=== PATIENT | male | born 1955 | race Caucasian/White ===

== ENCOUNTER 2019-08-01 16:47 | Inpatient (IN) | payer OTHER ==
[2019-08-01 16:59] VITALS: BMI 47.9
--- NOTE | 2019-08-01 17:22 | PDOC ---
History of Present Illness - History of Present Illness Initial Comments: 08/01/19 18:09 63 y/o M hx of CAD s/p stent placement, IDDM, HTN , presents to the ED with blood sugar of 800. His blood work was done at his PCP's office yesterday who called him today to inform him of this value. He admits to not always taking his insulin as he should, especially at night time. He has had increased thirst and urination over the last three weeks. He also endorses some dizziness when he stands up from a sitting position. He endorses tingling in his feet bilaterally. He denies chest pain, shortness of breath, abdominal pain, nausea, vomiting, diarrhea, hematuria. <Marty Cabrera - Last Filed: 08/17/19 23:29> <Florencia Delacruz - Last Filed: 08/20/19 09:18> - General Chief Complaint: Abnormal Lab Results (Outside) Stated Complaint: HYPERGLYCEMIC Time Seen by Provider: 08/01/19 17:16 Past History - Psycho Social/Smoking Cessation Hx Smoking History: Never smoked <Marty Cabrera - Last Filed: 08/17/19 23:29> <Florencia Delacruz - Last Filed: 08/20/19 09:18> - Past Medical History Allergies/Adverse Reactions: Allergies Allergy/AdvReac Type Severity Reaction Status Date / Time No Known Allergies Allergy Verified 08/01/19 16:55 Home Medications: Ambulatory Orders Insulin Detemir [Levemir Flextouch] 50 unit SQ BID #5 insuln.pen 08/04/19 Insulin Lispro Protamin/Lispro [Humalog Mix 75-25 Kwikpen] 45 unit SQ BID #5 insuln.pen 08/04/19 Pen Needle, Diabetic [1St Tier Unifine Pentips] 1 each MC BID #100 dis.needle Review of Systems - Review of Systems Constitutional: No: Chills, Fever HEENTM: No: Eye Pain, Blurred Vision Respiratory: No: Cough, Shortness of Breath Cardiac (ROS): No: Chest Pain ABD/GI: No: Abd. Pain w/ defecation, Nausea : No: Burning, Dysuria Musculoskeletal: Yes: Back Pain Integumentary: No: Bruising, Change in Color Neurological: Yes: Tingling. No: Headache Endocrine: Yes: Increased Thirst, Increased Urine <Marty Cabrera - Last Filed: 08/17/19 23:29> *Physical Exam - Vital Signs Last Vital Signs Temp Pulse Resp BP Pulse Ox 98.4 F 68 18 102/56 L 99 08/01/19 16:50 08/01/19 16:50 08/01/19 16:50 08/01/19 16:50 08/01/19 16:50 - Physical Exam Comments: 08/01/19 18:14 PE: GENERAL: Awake, alert, and fully oriented, in no acute distress. Obese male HEAD: No signs of trauma, normocephalic, atraumatic EYES: EOMI, sclera anicteric, conjunctiva clear ENT: Auricles normal inspection, hearing grossly normal, nares patent, oropharynx clear without exudates. Moist mucosa NECK: Normal ROM, supple, no lymphadenopathy, JVD, or masses LUNGS: No distress, speaks full sentences, clear to auscultation bilaterally HEART: Regular rate and rhythm, normal S1 and S2, no murmurs, rubs or gallops, peripheral pulses normal and equal bilaterally. ABDOMEN: Soft, nontender, normoactive bowel sounds. proteburant abdomen. No guarding, no rebound. No masses EXTREMITIES : Normal inspection, Normal range of motion, trace edema. No clubbing or cyanosis, normal capillary refill. NEUROLOGICAL: Cranial nerves II through XII grossly intact. Normal speech, normal gait, no focal sensorimotor deficits SKIN: Warm, Dry, normal turgor, no rashes or lesions noted <TreyadairJctraci - Last Filed: 08/17/19 23:29> - Vital Signs Last Vital Signs Temp Pulse Resp BP Pulse Ox 98.0 F 76 20 121/64 99 08/04/19 10:00 08/04/19 10:00 08/04/19 10:00 08/04/19 10:00 08/04/19 09:00 <Florencia Delacruz - Last Filed: 08/20/19 09:18> ED Treatment Course - LABORATORY CBC & Chemistry Diagram: 08/02/19 06:30 08/04/19 12:22 - ADDITIONAL ORDERS Additional order review: Laboratory Results 08/01/19 16:52 POC Glucometer > 600 08/01/19 16:52 POC Glucometer > 600 <Marty Cabrera - Last Filed: 08/17/19 23:29> - LABORATORY CBC & Chemistry Diagram: 08/02/19 06:30 08/04/19 12:22 - ADDITIONAL ORDERS Additional order review: 08/01/19 08/01/19 08/01/19 20:28 18:34 16:52 RBC 5.01 MCV 88.2 MCHC 32.0 RDW 15.8 MPV 10.8 Neutrophils % 77.3 Lymphocytes % 12.2 Monocytes % 8.0 Eosinophils % 1.6 Basophils % 0.9 POC Glucometer 570 > 600 - Medications Given in the ED: ED Medications Discontinued Medications Generic Name Dose Route Start Last Admin Trade Name Freq PRN Reason Stop Dose Admin Clotrimazole 1 applic 08/03/19 22:00 08/04/19 09:47 Lotrimin 1% Cream - TP 1 applic BID JASBIR Administration Heparin Sodium (Porcine) 5,000 unit 08/02/19 06:00 08/04/19 05:52 Heparin - SQ 5,000 unit TID JASBIR Administration Lactated Ringer's 1,000 mls @ 1,000 mls/hr 08/01/19 23:41 08/01/19 23:55 Lactated Ringers Solution IV 08/02/19 00:40 1,000 mls/hr ONCE STA Administration Sodium Chloride 1,000 mls @ 100 mls/hr 08/02/19 09:30 08/04/19 09:47 Normal Saline - IV Not Given ASDIR JASBIR Insulin Aspart 10 units 08/01/19 17:47 08/01/19 18:14 Novolog Vial SQ 08/01/19 17:48 10 units ONCE ONE Administration Protocol Insulin Aspart 1 vial 08/02/19 03:00 08/02/19 15:12 Novolog Vial Sliding Scale - SQ Not Given Q3H JASBIR Protocol Insulin Aspart 30 units 08/02/19 16:30 08/03/19 17:20 Novolog Mix 70/30 Vial SQ 14 unit BIDAC JASBIR Administration Insulin Aspart 1 vial 08/02/19 16:30 08/03/19 17:20 Novolog Vial Sliding Scale - SQ 14 units ACHS JASBIR Administration Protocol Insulin Aspart 45 units 08/04/19 07:00 08/04/19 06:14 Novolog Mix 70/30 Vial SQ 45 units BIDAC JASBIR Administration Insulin Aspart 1 vial 08/03/19 22:00 08/04/19 12:14 Novolog Vial Sliding Scale - SQ 10 units ACHS JASBIR Administration Protocol Insulin Detemir 50 units 08/02/19 07:00 08/02/19 06:49 Levemir Vial SQ 50 unit BID@0700,2200 JASBIR Administration Insulin Detemir 50 units 08/02/19 16:26 08/04/19 06:13 Levemir Vial SQ 50 unit BID@0700,2200 JASBIR Administration Insulin Human Regular 10 units 08/01/19 19:39 08/01/19 20:40 Novolin R Vial *For Ivpush Or Iv Drip Only* SQ 08/01/19 19:40 10 units ONCE ONE Administration Sodium Chloride 1,000 ml 08/01/19 17:46 08/01/19 19:04 Normal Saline - IV 08/01/19 17:47 Not Given ONCE ONE <Florencia Delacruz - Last Filed: 08/20/19 09:18> Medical Decision Making - Medical Decision Making 08/01/19 18:15 63 y/o M hx of CAD s/p stent placement, IDDM, HTN , presents to the ED with blood sugar of 800. Evaluate for possible dka cbc, cmp, ekg, ua, serum acetone, vbg,troponin Meds: 1L NS Pt. hard stick, butterfly labs done and sent. PO hydration possible and therefore encouraged. EKG: normal sinus rhythm, ST elevation probably due to repolarization disturbance Troponin to be obtained. 08/01/19 19:[address] Lindsey <Marty Cabrera - Last Filed: 08/17/19 23:29> Discharge - Discharge Information Problems reviewed: Yes <Marty Cabrera - Last Filed: 08/17/19 23:29> - Admission Yes <Florencia Delacruz - Last Filed: 08/20/19 09:18> - Discharge Information Clinical Impression/Diagnosis: Hyperglycemia, Creatinine elevation Condition: Stable
[2019-08-01] MEDS ORDERED: SODIUM CHLORIDE 0.9% 500 ML INFUS.BAG IV ONE (17:46)
[2019-08-01] MEDS ORDERED: INSULIN (NOVOLOG) ASPART 100 UNITS/ML 10ML VIAL SQ ONE (17:47)
--- NOTE | 2019-08-01 17:50 | PDOC ---
Attending Attestation - Resident Resident Name: Jc Cabreratraci - ED Attending Attestation I have performed the following: I have examined & evaluated the patient, The case was reviewed & discussed with the resident, I agree w/resident's findings & plan - HPI HPI: 08/01/19 18:26 Connor 63 YOM with h/o HTN, IDDM, CAD presenting with hyperglycemia >800 noted on routine labs yesterday. Also endorses increased thirst and urination x 3 weeks, +tingling in his feet. No cp/sob, AP. no focal weakness/paresthesias. Has not been taking his insulin regimen as previously prescribed x 1 month. usually on metformin and novolog sq. 08/01/19 18:30 - Physicial Exam PE: 08/01/19 18:26 Agree with the resident's HPI and PE as documented in the electronic medical record. NAD, well appearing, EOMI, PERRL, dry membranes, nl conjunctiva, anicteric; neck supple. lungs clear, RRR, abdomen soft nontender. Back nontender. RAMOS x4, no focal neuro deficits. No peripheral edema. normal color for ethnicity, WWP. 08/01/19 19:30 - Medical Decision Making 08/01/19 17:49 See HPI for details. Prior notes reviewed, including admissions, discharges and consultations. Vital signs reviewed, wnl. Vital Signs Temp Pulse Resp BP Pulse Ox 98.4 F 68 18 102/56 L 99 08/01/19 16:50 08/01/19 16:50 08/01/19 16:50 08/01/19 16:50 08/01/19 16:50 ddx, HHS, DKA, dehydration, hyperglycemia, med side effect, electrolyte/ metabolic derangements, ACS, arrhythmia laboratory results and imaging reviewed, basic labs and lytes wnl, notable for Cr 3, unknown prior, pt without history of kidney issues. pseudo-hyponatremia, corrected to be 140 based on sugar level. hyper-K 5.8, likely related to renal function. UA_glucosuria Cardiac panel_neg, reassuring, doubt cardiac EKG normal sinus rhythm at 74 bpm, no interval abnormalities, narrow QRS, ST and T wave segments and morphology normal. ED course -interventions: novolog 10 units, IVF, recheck 10/05/19 19:30 - downtrending glucose, 570, will give another dose of novolog 10 units and rechec - will need admission for likely pre-renal/hypovolemia from polyuria/dipsia, hyperglycemia and renal insufficiency, unclear baseline urine lytes and osms. Heart Score/ECG Review #1 ECG reviewed & interpreted by me at: 17:20 General ECG Interpretation: Sinus Rhythm, Normal Rate, Normal Intervals Compared to previous ECG there are: Previous ECG unavail 08/01/19 17:50 EKG normal sinus rhythm at 74 bpm, no interval abnormalities, narrow QRS, ST and T wave segments and morphology normal.
[2019-08-01] MEDS ORDERED: INSULIN (NOVOLOG) ASPART 100 UNITS/ML 10ML VIAL ONE (18:12)
[2019-08-01 18:44] LABS: BASO % 0.9 % (0-2.0); EOS % 1.6 % (0-4.5); HEMATOCRIT 44.2 % (35.4-49); HEMOGLOBIN 14.1 GM/dL (11.7-16.9); LYMPH % 12.2 % (8-40); MCH 28.2 pg (25.7-33.7); MEAN CELL VOLUME 88.2 fl (80-96); MEAN PLT VOLUME 10.8 fl (7.5-11.1); NEUT % 77.3 % (42.8-82.8); PLATELET COUNT 188 K/MM3 (134-434); RBC 5.01 M/mm3 (4.00-5.60); RDW 15.8 % (11.9-15.9); VENOUS PC02 57.8 mmHg (38-52); VENOUS PH 7.29 (7.31-7.41); WHITE BLOOD COUNT 11.9 K/mm3 (4.0-10.0)
[2019-08-01 18:49] LABS: VENOUS PO2 < 49 mmHg (28-48)
[2019-08-01 18:54] LABS: PH,URINE 5.5 (5.0-8.0); URINE APPEARANCE Clear; URINE BILIRUBIN Negative (NEGATIVE); URINE COLOR Yellow; URINE GLUCOSE (UA) 3+ (NEGATIVE); URINE KETONE Negative (NEGATIVE); URINE LEUK ESTERASE Negative (NEGATIVE); URINE NITRITE Negative (NEGATIVE); URINE PROTEIN Negative (NEGATIVE); URINE UROBILINOGEN 0.2 mg/dL (0.2-1.0)
[2019-08-01 19:10] LABS: ALBUMIN 3.2 g/dl (3.4-5.0); BILIRUBIN,TOTAL 0.3 mg/dL (0.2-1); BLOOD UREA NITROGEN 86.2 mg/dL (7-18); CALCIUM 9.1 mg/dL (8.5-10.1); POTASSIUM 5.8 mmol/L (3.5-5.1); TOT PROT 7.3 g/dl (6.4-8.2)
--- NOTE | 2019-08-01 19:10 | PDOC ---
*Physical Exam - Vital Signs Last Vital Signs Temp Pulse Resp BP Pulse Ox 98.4 F 68 18 102/56 L 99 08/01/19 16:50 08/01/19 16:50 08/01/19 16:50 08/01/19 16:50 08/01/19 16:50 - Physical Exam Comments: 08/01/19 21:40 Gen: Alert, NAD, comfortable-appearing, obese HEENT: PERRL, EOMI, MMM, NCAT. No conjunctival pallor. Sclera are non-icteric. CV: Regular rate and rhythm. No murmurs, rubs, or gallops. PULM: No resp distress. CTAB, no wheezes, rales, or rhonchi. ABD: protuberant, soft, NT/ND, no rebound tenderness or guarding, no CVA tenderness. BACK: No TTP of c/t/l-spine. No step-offs or deformities. MSK: No bony deformities. 2+ pulses in all extremities. NEURO: AAOx3. PERRL. No gross CN deficits. Strength and sensation grossly intact throughout. EXTREMITIES: No cyanosis. No clubbing. No edema. No calf tenderness. PSYCH: Normal mood and thought pattern. SKIN: Warm and dry. Normal capillary refill. No rashes. No jaundice. ED Treatment Course - LABORATORY CBC & Chemistry Diagram: 08/01/19 18:34 08/01/19 18:34 - ADDITIONAL ORDERS Additional order review: Laboratory Results 08/01/19 08/01/19 08/01/19 18:42 18:34 18:34 VBG pH 7.29 L POC VBG pCO2 57.8 H POC VBG pO2 < 49 H VBG HCO3 26.6 VBG O2 Sat (S[place]ail) 53.5 L VBG Base Excess -0.9 POC Glucometer Urine Color Yellow Urine Appearance Clear Urine pH 5.5 Ur Specific [place] <= 1.005 L Urine Protein Negative Urine Glucose (UA) 3+ H Urine Ketones Negative Urine Blood Negative Urine Nitrite Negative Urine Bilirubin Negative Urine Urobilinogen 0.2 Ur Leukocyte Esterase Negative Acetone, Qual Negative 08/01/19 16:52 VBG pH POC VBG pCO2 POC VBG pO2 VBG HCO3 VBG O2 Sat (S[place]ail) VBG Base Excess POC Glucometer > 600 Urine Color Urine Appearance Urine pH Ur Specific [place] Urine Protein Urine Glucose (UA) Urine Ketones Urine Blood Urine Nitrite Urine Bilirubin Urine Urobilinogen Ur Leukocyte Esterase Acetone, Qual 08/01/19 08/01/19 18:34 16:52 RBC 5.01 MCV 88.2 MCHC 32.0 RDW 15.8 MPV 10.8 Neutrophils % 77.3 Lymphocytes % 12.2 Monocytes % 8.0 Eosinophils % 1.6 Basophils % 0.9 POC Glucometer > 600 - Medications Given in the ED: ED Medications Discontinued Medications Generic Name Dose Route Start Last Admin Trade Name Edie PRN Reason Stop Dose Admin Insulin Aspart 10 units 08/01/19 17:47 08/01/19 18:14 Novolog Vial SQ 08/01/19 17:48 10 units ONCE ONE Administration Protocol Sodium Chloride 1,000 ml 08/01/19 17:46 08/01/19 19:04 Normal Saline - IV 08/01/19 17:47 Not Given ONCE ONE Medical Decision Making - Medical Decision Making 08/01/19 19:05 Sign out received. 63yo M IDDM, morbid obesity, CAD s/p stent 2mo ago sent in by PCP for BG 800 from labs done yesterday, c/o polyuria, polydipsia, and tingling in b/l feet. POC glucose 600 here. Denies N/V, confusion, abdominal pain, dizziness/ lightheadedness. EKG reviewed - sign out concerning for questionable KRISHNA in lead II, but on review with Dr Delacruz, benign early repolarizations without reciprocal changes. Pending labs and hydration, dispo adm vs dc Current PCP (only 1 visit) - Dr Jenaro Flowers 08/01/19 20:01 Labs reviewed. Of note, finger stick at 1652 600 (10 units insulin given 1811), WBC 11.9, VBG pH 7.29, neg acetone, Na 126 (correct 135-140), K 5.8, BUN 86.2, Cr 3.0, gluc 689, neg trop, UA glucosuria. Will repeat BMP after hydration. Discussed lab results with pt - pt states he may have been told he has kidney problems 2 months ago at [facility] when he was getting stent but he is uncertain. His PCP at that time was Dr Dyu Watson but he doesn't know if he would know either. IV obtained for IVF. Urine sodium, urine total protein, urine potassium, urine creatinine, urine osmolality, serum osmolality. Will admit for hyperglycemia with end-organ involvement (Cr 3.0, unknown baseline). 08/01/19 20:08 Repeat finger stick. Pending finger, stick consider additional insulin. 08/01/19 20:49 Finger stick 570. Additional 10 units insulin. MBMD sent to hospitalist. 08/01/19 21:21 CXR added. Serum osmol 329, urine osmol 496, urine total protein 14.6, urine sodium 21. 08/01/19 21:43 Repeat BMP. 08/01/19 21:48 Signed out to admitting team, attending Dr Sharp. Discharge - Discharge Information Problems reviewed: Yes Clinical Impression/Diagnosis: Hyperglycemia, Creatinine elevation Condition: Stable - Admission Yes - Follow up/Referral Referrals: Maurice Guzmán DPM [Staff Physician] - - Patient Discharge Instructions - Post Discharge Activity
[2019-08-01] MEDS ORDERED: INSULIN REGULAR HUMAN 100 UNITS/ML *VIAL SQ ONE (19:39)
--- NOTE | 2019-08-01 21:38 | PN ---
Teaching Attending Note Name of Resident: Steven Lewis ATTENDING PHYSICIAN STATEMENT I saw and evaluated the patient. I reviewed the resident's note and discussed the case with the resident. I agree with the resident's findings and plan as documented. Please see my addendum on their H and P for further discussion.
[2019-08-01 22:27] LABS: BLOOD UREA NITROGEN 79.7 mg/dL (7-18); CALCIUM 8.6 mg/dL (8.5-10.1); CREATININE 2.7 mg/dL (0.55-1.3); POTASSIUM 4.7 mmol/L (3.5-5.1)
--- NOTE | 2019-08-01 22:55 | HP ---
<Jean Pierre Guthrie - Last Filed: 08/01/19 23:39> ATTENDING PHYSICIAN STATEMENT I saw and evaluated the patient. I reviewed the resident's note and discussed the case with the resident. I agree with the resident's findings and plan as documented. Seen and examined; please refer to resident note for all historical information. No prior hospital visits. PMH with HTN, DM on insulin. Patient is noted to be noncompliant on his insulin therapy at home, he was recently switched to 100 units of glargine in the morning. He has not been taking this. He has noted to have increased creatinine with a pattern on his urinalysis is suspicious for chronic kidney disease, he is noted to have + random urine protein. He has hyperosmolar hyponatremia improved after correction of the glucose with persisting hyerglycemia despite insulin tx. 10 sys ROS done and negative aside from HPI PMH, PSH reivewed; as documented FH negative for sudden CV Social hx negative for current tobacco and IVDU VS, labs, imaging reviewed NAD, AAO, resting in bed NC AT EOMI PERRLA RRR s1/2 no mgr Skin without new rashes or breakdown NT ND +BS Normal muscle tone, no acute weakness noted CN2-12 wnl, no new fnd noted Normal mood, appropriate behavior EKG reviewed Imaging reviewed ASSESSMENT AND PLAN: Patient presents with Uncontrolled DM on insulin with severe hyperglycemia Acute Hyponatremia (likely pseudohyponatremia) History of Morbid Obesity (CHARITO eval ordered) ADONIS vs. CKD Likely CHARITO Likely Pickwickian syndrome Overall the patient will be admitted to the medicine service we will keep him on the floor and place him on a diabetic diet. We will check an A1c, we will check every 3 hour glucose with two 3-hour insulin sliding scale coverage. We will fraction his Lantus into our in-house Levemir and we will place him on 50 twice daily and titrate up the dosage based on his sliding scale requirements. We will professor of counseling on weight. We will evaluate him for CHARITO and pickwickian syndrome. ABG is pending, VBG reviewed from the ER. All his questions were answered. Due to multiple laboratory abnormalities as well as CKD, patient has sufficient evidence that he is at risk of decompensation outside the hospital and remains acutely ill and appropriate for admission. He will be monitored on the [facility] medical service overnight. Appropriate consultations placed. ATTENDING PHYSICIAN STATEMENT I saw and evaluated the patient. I reviewed the resident's note and discussed the case with the resident. I agree with the resident's findings and plan as documented. SUBJECTIVE: OBJECTIVE: ASSESSMENT AND PLAN: <Steven Lewis - Last Filed: 08/02/19 03:11> CHIEF COMPLAINT: hyperglycemia PCP: patient cannot remember HISTORY OF PRESENT ILLNESS: 63 year old male with a history of CAD s/p stent, morbid obesity, insulin- dependent diabetes, hypertension, legionella in 2016, prostate CA s/p radiation therapy many years ago was sent to the ED from his PCP office for hyperglycemia found to be 800 in the office. He states that he is non-compliant with his insulin regimen and does not take it every day. He reports previously being on basaglar 100U twice a day, and then states that he was reduced t o 100U once a day when he saw his new PCP recently. Reports that he has had recent polyuria and polydipsia over the past several weeks. States that he has peripheral neuropathy in his feet that has been progressing over the past several months. Denies abdominal pain, nausea, vomiting or diarrhea, chest pain or shortness of breath. Denies ever being told he had any problems with his kidneys. ER course was notable for: (1) Glu 680 --> 344 s/p 10U insulin (2) Cre 2.7, unknown baseline (3) hyponatremia 126 Recent Travel: denies PAST MEDICAL HISTORY: CAD s/p stent, morbid obesity, insulin-dependent diabetes , hypertension, legionella in 2016, prostate CA s/p radiation therapy many years ago PAST SURGICAL HISTORY: b/l hip replacements Social History: Smoking: never Alcohol: never Drugs: never Family Hx: family history is unknown to the patient Allergies No Known Allergies Allergy (Verified 08/01/19 16:55) HOME MEDICATIONS: REVIEW OF SYSTEMS CONSTITUTIONAL: Absent: fever, chills, diaphoresis, generalized weakness, malaise, loss of appetite, weight change HEENT: Absent: rhinorrhea, nasal congestion, throat pain, throat swelling, difficulty swallowing, mouth swelling, ear pain, eye pain, visual changes CARDIOVASCULAR: Absent: chest pain, syncope, palpitations, irregular heart rate, lightheadedness , peripheral edema RESPIRATORY: Absent: cough, shortness of breath, dyspnea with exertion, orthopnea, wheezing, stridor, hemoptysis GASTROINTESTINAL: Absent: abdominal pain, abdominal distension, nausea, vomiting, diarrhea, constipation, melena, hematochezia GENITOURINARY: frequency Absent: dysuria, urgency, hesitancy, hematuria, flank pain, genital pain MUSCULOSKELETAL: Absent: myalgia, arthralgia, joint swelling, back pain, neck pain SKIN: Absent: rash, itching, pallor HEMATOLOGIC/IMMUNOLOGIC: Absent: easy bleeding, easy bruising, lymphadenopathy, frequent infections ENDOCRINE: Absent: unexplained weight gain, unexplained weight loss, heat intolerance, cold intolerance NEUROLOGIC: Absent: headache, focal weakness or paresthesias, dizziness, unsteady gait, seizure, mental status changes, bladder or bowel incontinence PSYCHIATRIC: Absent: anxiety, depression, suicidal or homicidal ideation, hallucinations. PHYSICAL EXAMINATION Vital Signs - 24 hr 08/01/19 08/01/19 16:50 21:56 Temperature 98.4 F Pulse Rate 68 Pulse Rate [ 67 Left] Respiratory 18 18 Rate Blood Pressure 102/56 L Blood Pressure 111/63 [Left Arm] O2 Sat by Pulse 99 99 Oximetry (%) GENERAL: A&Ox3, no acute distress EYES: PERRLA, EOMI ENT: Dry mucus membranes NECK: No JVD LUNGS: CTA but distant breath sounds due to body habitus, no wheezing appreciated HEART: RRR, no murmurs ABDOMEN: Morbidly obese, Soft, nontender, BS present MUSCULOSKELETAL: No CVA Tenderness EXTREMITIES: 2+ pulses, no edema. NEUROLOGICAL: Cranial nerves II-XII intact. 5/5 motor strength, decreased sensation on bottom of feet b/l Laboratory Results - last 24 hr 08/01/19 08/01/19 08/01/19 16:52 18:34 18:34 WBC 11.9 H RBC 5.01 Hgb 14.1 Hct 44.2 MCV 88.2 MCH 28.2 MCHC 32.0 RDW 15.8 Plt Count 188 MPV 10.8 Absolute Neuts (auto) 9.2 H Neutrophils % 77.3 Lymphocytes % 12.2 Monocytes % 8.0 Eosinophils % 1.6 Basophils % 0.9 Nucleated RBC % 0 VBG pH POC VBG pCO2 POC VBG pO2 VBG HCO3 VBG O2 Sat ([place]) VBG Base Excess Sodium 126 L Potassium 5.8 H Chloride 89 L Carbon Dioxide 25 Anion Gap 12 BUN 86.2 H Creatinine 3.0 H Est GFR (CKD-EPI)AfAm 24.32 Est GFR (CKD-EPI)NonAf 20.98 POC Glucometer > 600 Random Glucose 689 H* Serum Osmolality Calcium 9.1 Total Bilirubin 0.3 AST 16 ALT 35 Alkaline Phosphatase 89 Troponin I Total Protein 7.3 Albumin 3.2 L Urine Color Urine Appearance Urine pH Ur Specific [place] Urine Protein Urine Glucose (UA) Urine Ketones Urine Blood Urine Nitrite Urine Bilirubin Urine Urobilinogen Ur Leukocyte Esterase Urine Osmolality U Random Total Protein Ur Random Sodium Acetone, Qual 08/01/19 08/01/19 08/01/19 18:34 18:34 18:34 WBC RBC Hgb Hct MCV MCH MCHC RDW Plt Count MPV Absolute Neuts (auto) Neutrophils % Lymphocytes % Monocytes % Eosinophils % Basophils % Nucleated RBC % VBG pH 7.29 L POC VBG pCO2 57.8 H POC VBG pO2 < 49 H VBG HCO3 26.6 VBG O2 Sat ([place]) 53.5 L VBG Base Excess -0.9 Sodium Potassium Chloride Carbon Dioxide Anion Gap BUN Creatinine Est GFR (CKD-EPI)AfAm Est GFR (CKD-EPI)NonAf POC Glucometer Random Glucose Serum Osmolality Calcium Total Bilirubin AST ALT Alkaline Phosphatase Troponin I < 0.02 Total Protein Albumin Urine Color Urine Appearance Urine pH Ur Specific [place] Urine Protein Urine Glucose (UA) Urine Ketones Urine Blood Urine Nitrite Urine Bilirubin Urine Urobilinogen Ur Leukocyte Esterase Urine Osmolality U Random Total Protein Ur Random Sodium Acetone, Qual Negative 08/01/19 08/01/19 08/01/19 18:34 18:42 20:28 WBC RBC Hgb Hct MCV MCH MCHC RDW Plt Count MPV Absolute Neuts (auto) Neutrophils % Lymphocytes % Monocytes % Eosinophils % Basophils % Nucleated RBC % VBG pH POC VBG pCO2 POC VBG pO2 VBG HCO3 VBG O2 Sat ([place]) VBG Base Excess Sodium Potassium Chloride Carbon Dioxide Anion Gap BUN Creatinine Est GFR (CKD-EPI)AfAm Est GFR (CKD-EPI)NonAf POC Glucometer 570 Random Glucose Serum Osmolality 329 H Calcium Total Bilirubin AST ALT Alkaline Phosphatase Troponin I Total Protein Albumin Urine Color Yellow Urine Appearance Clear Urine pH 5.5 Ur Specific [place] <= 1.005 L Urine Protein Negative Urine Glucose (UA) 3+ H Urine Ketones Negative Urine Blood Negative Urine Nitrite Negative Urine Bilirubin Negative Urine Urobilinogen 0.2 Ur Leukocyte Esterase Negative Urine Osmolality U Random Total Protein Ur Random Sodium Acetone, Qual 08/01/19 08/01/19 08/01/19 20:30 20:30 20:30 WBC RBC Hgb Hct MCV MCH MCHC RDW Plt Count MPV Absolute Neuts (auto) Neutrophils % Lymphocytes % Monocytes % Eosinophils % Basophils % Nucleated RBC % VBG pH POC VBG pCO2 POC VBG pO2 VBG HCO3 VBG O2 Sat ([place]) VBG Base Excess Sodium Potassium Chloride Carbon Dioxide Anion Gap BUN Creatinine Est GFR (CKD-EPI)AfAm Est GFR (CKD-EPI)NonAf POC Glucometer Random Glucose Serum Osmolality Calcium Total Bilirubin AST ALT Alkaline Phosphatase Troponin I Total Protein Albumin Urine Color Urine Appearance Urine pH Ur Specific [place] Urine Protein Urine Glucose (UA) Urine Ketones Urine Blood Urine Nitrite Urine Bilirubin Urine Urobilinogen Ur Leukocyte Esterase Urine Osmolality 496 U Random Total Protein 14.6 H Ur Random Sodium 21 L Acetone, Qual 08/01/19 21:50 WBC RBC Hgb Hct MCV MCH MCHC RDW Plt Count MPV Absolute Neuts (auto) Neutrophils % Lymphocytes % Monocytes % Eosinophils % Basophils % Nucleated RBC % VBG pH POC VBG pCO2 POC VBG pO2 VBG HCO3 VBG O2 Sat ([place]) VBG Base Excess Sodium 131 L Potassium 4.7 Chloride 96 L Carbon Dioxide 26 Anion Gap 8 BUN 79.7 H Creatinine 2.7 H Est GFR (CKD-EPI)AfAm 27.62 Est GFR (CKD-EPI)NonAf 23.83 POC Glucometer Random Glucose 344 H Serum Osmolality Calcium 8.6 Total Bilirubin AST ALT Alkaline Phosphatase Troponin I Total Protein Albumin Urine Color Urine Appearance Urine pH Ur Specific [place] Urine Protein Urine Glucose (UA) Urine Ketones Urine Blood Urine Nitrite Urine Bilirubin Urine Urobilinogen Ur Leukocyte Esterase Urine Osmolality U Random Total Protein Ur Random Sodium Acetone, Qual ASSESSMENT/PLAN: 63 year old male with a history of CAD s/p stent, morbid obesity, insulin- dependent diabetes, hypertension, legionella in 2016, prostate CA s/p radiation therapy many years ago was sent to the ED from his PCP office for hyperglycemia found to be 800 in the office. #Uncontrolled Diabetes Mellitus: likely 2/2 noncompliance vs decreased dosage in basal insulin. Patient's glucose decreased to 344 from 689 -will do levemir 50 BID to assess insulin requirements -BGMs Q3H -ISS Q3H -will need insulin dosage calculated based on daily needs #ADONIS vs CKD: as patient has not been here before, it is unclear whether this is an acute kidney injury vs a chronic kidney disease, however his comorbidities and -renal ultrasound ordered -urine lytes -bolus lactated ringers -repeat BMP in the morning -nephro consulted #Hyponatremia: improving, up to 131 from 126; could be artifactual from hyperglycemia (corrected 135-140) -bolus LR -repeat BMP in the morning #Morbid Obesity: patient's BMI is 47.9 -this puts him at risk of obesity hypoventilation syndrome, obstructive sleep apnea -dietary consult -counseled patient on diet and exercise -could use eval by pulmonology for CHARITO screening #Coronary Artery Disease s/p stenting -will need to confirm medications in the AM to see if he is on antiplatelet agents/statins #FEN -bolus LR -replete lytes as necessary and repeat BMP in AM -diabetic diet #Prophylaxis -heparin 5000 subq TID #Disposition -admit med surg, anticipate discharge within 1-2 days Visit type - Emergency Visit Emergency Visit: Yes ED Registration Date: 08/01/19 Care time: The patient presented to the Emergency Department on the above date and was hospitalized for further evaluation of their emergent condition. - New Patient This patient is new to me today: Yes Date on this admission: 08/02/19 - Critical Care Critical Care patient: No ATTENDING PHYSICIAN STATEMENT I saw and evaluated the patient. I reviewed the resident's note and discussed the case with the resident. I agree with the resident's findings and plan as documented. SUBJECTIVE: OBJECTIVE: ASSESSMENT AND PLAN:
[2019-08-01] MEDS ORDERED: LACTATED RINGERS SOLUTION 1,000 ML IV STA (23:41)
[2019-08-02 00:18] LABS: ARTERIAL BLD GAS O2 SATURATION 93.2 % (95-98); ARTERIAL BLOOD GAS BASE EXCESS -2.1 meq/l (-2-2); ARTERIAL BLOOD GAS PCO2 42.1 mmHg (35-45); ARTERIAL BLOOD GAS PO2 68.2 mmHg (80-100); ARTERIAL BLOOD GAS pH 7.35 (7.35-7.45)
[2019-08-02 00:20] LABS: ALLENS TEST POSITIVE
[2019-08-02] MEDS: INSULIN SLIDING SCALE (NOVOLOG) 1 VIAL SQ SCH ×7 (03:34→21:41)
[2019-08-02 06:49] LABS: HEMATOCRIT 42.1 % (35.4-49); HEMOGLOBIN 14.1 GM/dL (11.7-16.9); MCH 28.7 pg (25.7-33.7); MCHC 33.5 g/dl (32.0-35.9); MEAN CELL VOLUME 85.6 fl (80-96); MEAN PLT VOLUME 10.2 fl (7.5-11.1); PLATELET COUNT 184 K/MM3 (134-434); RBC 4.93 M/mm3 (4.00-5.60); RDW 15.7 % (11.9-15.9); WHITE BLOOD COUNT 10.2 K/mm3 (4.0-10.0)
[2019-08-02] MEDS: HEPARIN NA (PORCINE) 5,000 UNITS/ML 1ML VIAL SQ SCH ×3 (06:51→21:41)
[2019-08-02] MEDS ORDERED: INSULIN (LEVEMIR) 100 UNITS/ML UNITS SQ SCH (07:00)
[2019-08-02 07:20] LABS: BLOOD UREA NITROGEN 70.2 mg/dL (7-18); CALCIUM 8.9 mg/dL (8.5-10.1); CREATININE 2.4 mg/dL (0.55-1.3); POTASSIUM 4.7 mmol/L (3.5-5.1)
[2019-08-02] MEDS ORDERED: INSULIN (NOVOLOG) ASPART 100 UNITS/ML 10ML VIAL ONE (08:45)
--- NOTE | 2019-08-02 09:12 | CON.NEP ---
Consult Consult Specialty:: nephrology - History of Present Illness Chief Complaint: none History of Present Illness: This is a 63 year old hypertensive, diabetic, obese man with history of hip surgery and prostate cancer s/p radiation implants who was sent in by his new PMD for admission due to uncontrolled diabetes. Has polyuria and polydypsia but no other complaints. He was told recently of some renal insuffioiency but had a cardiac cath eith no hydration last month. He ihas had dm for 30 years and does not have diabetic retinopathy. - History Source History Provided By: Patient, Medical Record Limitations to Obtaining History: No Limitations - Past Medical History Cardio/Vascular: Yes: CAD, HTN Renal/: Yes: Renal Inusuff, Cancer Endocrine: Yes: Diabetes Mellitus - Smoking History Smoking history: Never smoked Home Medications - Allergies Allergies/Adverse Reactions: Allergies Allergy/AdvReac Type Severity Reaction Status Date / Time No Known Allergies Allergy Verified 08/01/19 16:55 Review of Systems - Review of Systems Constitutional: reports: No Symptoms Eyes: reports: No Symptoms HENT: reports: No Symptoms Neck: reports: No Symptoms Cardiovascular: reports: No Symptoms Respiratory: reports: No Symptoms Gastrointestinal: reports: No Symptoms Genitourinary: reports: Frequency Breasts: reports: No Symptoms Reported Musculoskeletal: reports: No Symptoms Integumentary: reports: No Symptoms Neurological: reports: No Symptoms Endocrine: reports: Increased Thirst Hematology/Lymphatic: reports: No Symptoms Psychiatric: reports: No Symptoms Nephrology Consult - Height Height: 5 ft 7 in - Weight Weight: 306 lb - BMI Body Mass Index (BMI): 47.9 - Lab Results CBC,BMP: CBC, BMP 08/02/19 06:30 08/02/19 06:30 Anion Gap: Anion Gap Anion Gap 8 MMOL/L (8-16) 08/02/19 06:30 - Imaging Chest X-ray: Report Reviewed (no acute chest pathology) EKG: Other (not in computer) - Physical Examination Vital Signs: Vital Signs Temperature 98.4 F 08/02/19 00:10 Pulse Rate 66 08/02/19 00:10 Respiratory Rate 16 08/02/19 00:10 Blood Pressure 115/55 L 08/02/19 00:10 O2 Sat by Pulse Oximetry (%) 99 08/02/19 00:10 Constitutional: Yes: Well Nourished, Obese Eyes: Yes: Conjunctiva Clear HENT: Yes: Atraumatic, Normocephalic Neck: Yes: Supple, Trachea Midline Cardiovascular: Yes: Regular Rate and Rhythm Respiratory: Yes: CTA Bilaterally Gastrointestinal: Yes: Normal Bowel Sounds, Soft Renal/: Yes: WNL Musculoskeletal: Yes: WNL Extremities: Yes: WNL Edema: No Peripheral Pulses WNL: Yes Integumentary: Yes: WNL Wound/Incision: Yes: Clean/Dry Neurological: Yes: Alert, Oriented, Other (some decreased hearing) Psychiatric: Yes: Alert, Oriented Assessment/Plan This is a 63 year old man who presents with ADONIS probably from hyperglycemia and recent contrast exposure. May have CKD as well. He had radiation implants in past. He does not have proteinuria and is unlikely to have diabetic nephropathy since he has no diabetic retinopathy and has had diabetes for such a long time. PLAN obtain urine sodium and creat urine protein renal sonogram hepatitis panel avoid hypotension and nephrotoxins would keep on saline for now MV
--- NOTE | 2019-08-02 09:22 | PN ---
Progress Note (short form) - Note Progress Note: Events noted has uncontrolled DM for many years-- does not go to doctors- met DR Flowers through a friend has tingling sensation to feet has previous h/o abnormal renal function Vital Signs - 24 hr 08/01/19 08/01/19 08/02/19 16:50 21:56 00:10 Temperature 98.4 F 98.4 F Pulse Rate 68 66 Pulse Rate [ 67 Left] Respiratory 18 18 16 Rate Blood Pressure 102/56 L 115/55 L Blood Pressure 111/63 [Left Arm] O2 Sat by Pulse 99 99 99 Oximetry (%) Current Medications Generic Name Dose Route Start Last Admin Trade Name Freq PRN Reason Stop Dose Admin Heparin Sodium (Porcine) 5,000 unit 08/02/19 06:00 08/02/19 06:51 Heparin - SQ 5,000 unit TID JASBIR Administration Insulin Aspart 1 vial 08/02/19 03:00 08/02/19 06:51 Novolog Vial Sliding Scale - SQ 10 unit Q3H JASBIR Administration Protocol Insulin Detemir 50 units 08/02/19 07:00 08/02/19 06:49 Levemir Vial SQ 50 unit BID@[id number],2200 JASBIR Administration Laboratory Results - last 24 hr 08/01/19 08/01/19 08/01/19 16:52 18:34 18:34 WBC 11.9 H RBC 5.01 Hgb 14.1 Hct 44.2 MCV 88.2 MCH 28.2 MCHC 32.0 RDW 15.8 Plt Count 188 MPV 10.8 Absolute Neuts (auto) 9.2 H Neutrophils % 77.3 Lymphocytes % 12.2 Monocytes % 8.0 Eosinophils % 1.6 Basophils % 0.9 Nucleated RBC % 0 Anticoagulation Therapy Puncture Site ABG pH ABG pCO2 at Pt Temp ABG pO2 at Pt Temp ABG HCO3 ABG O2 Sat (Measured) ABG O2 Content ABG Base Excess Sergio Test VBG pH POC VBG pCO2 POC VBG pO2 VBG HCO3 VBG O2 Sat (Suhail) VBG Base Excess O2 Delivery Device Oxygen Flow Rate Vent Mode Vent Rate Mechanical Rate Pressure Support Vent Sodium 126 L Potassium 5.8 H Chloride 89 L Carbon Dioxide 25 Anion Gap 12 BUN 86.2 H Creatinine 3.0 H Est GFR (CKD-EPI)AfAm 24.32 Est GFR (CKD-EPI)NonAf 20.98 POC Glucometer > 600 Random Glucose 689 H* Hemoglobin A1c % Serum Osmolality Calcium 9.1 Total Bilirubin 0.3 AST 16 ALT 35 Alkaline Phosphatase 89 Troponin I Total Protein 7.3 Albumin 3.2 L Triglycerides Cholesterol Total LDL Cholesterol HDL Cholesterol TSH Urine Color Urine Appearance Urine pH Ur Specific [place] Urine Protein Urine Glucose (UA) Urine Ketones Urine Blood Urine Nitrite Urine Bilirubin Urine Urobilinogen Ur Leukocyte Esterase Urine Osmolality U Random Total Protein Ur Random Sodium Acetone, Qual 08/01/19 08/01/19 08/01/19 18:34 18:34 18:34 WBC RBC Hgb Hct MCV MCH MCHC RDW Plt Count MPV Absolute Neuts (auto) Neutrophils % Lymphocytes % Monocytes % Eosinophils % Basophils % Nucleated RBC % Anticoagulation Therapy Puncture Site ABG pH ABG pCO2 at Pt Temp ABG pO2 at Pt Temp ABG HCO3 ABG O2 Sat (Measured) ABG O2 Content ABG Base Excess Sergio Test VBG pH 7.29 L POC VBG pCO2 57.8 H POC VBG pO2 < 49 H VBG HCO3 26.6 VBG O2 Sat (Suhail) 53.5 L VBG Base Excess -0.9 O2 Delivery Device Oxygen Flow Rate Vent Mode Vent Rate Mechanical Rate Pressure Support Vent Sodium Potassium Chloride Carbon Dioxide Anion Gap BUN Creatinine Est GFR (CKD-EPI)AfAm Est GFR (CKD-EPI)NonAf POC Glucometer Random Glucose Hemoglobin A1c % Serum Osmolality Calcium Total Bilirubin AST ALT Alkaline Phosphatase Troponin I < 0.02 Total Protein Albumin Triglycerides Cholesterol Total LDL Cholesterol HDL Cholesterol TSH Urine Color Urine Appearance Urine pH Ur Specific [place] Urine Protein Urine Glucose (UA) Urine Ketones Urine Blood Urine Nitrite Urine Bilirubin Urine Urobilinogen Ur Leukocyte Esterase Urine Osmolality U Random Total Protein Ur Random Sodium Acetone, Qual Negative 08/01/19 08/01/19 08/01/19 18:34 18:42 20:28 WBC RBC Hgb Hct MCV MCH MCHC RDW Plt Count MPV Absolute Neuts (auto) Neutrophils % Lymphocytes % Monocytes % Eosinophils % Basophils % Nucleated RBC % Anticoagulation Therapy Puncture Site ABG pH ABG pCO2 at Pt Temp ABG pO2 at Pt Temp ABG HCO3 ABG O2 Sat (Measured) ABG O2 Content ABG Base Excess Sergio Test VBG pH POC VBG pCO2 POC VBG pO2 VBG HCO3 VBG O2 Sat (Suhail) VBG Base Excess O2 Delivery Device Oxygen Flow Rate Vent Mode Vent Rate Mechanical Rate Pressure Support Vent Sodium Potassium Chloride Carbon Dioxide Anion Gap BUN Creatinine Est GFR (CKD-EPI)AfAm Est GFR (CKD-EPI)NonAf POC Glucometer 570 Random Glucose Hemoglobin A1c % Serum Osmolality 329 H Calcium Total Bilirubin AST ALT Alkaline Phosphatase Troponin I Total Protein Albumin Triglycerides Cholesterol Total LDL Cholesterol HDL Cholesterol TSH Urine Color Yellow Urine Appearance Clear Urine pH 5.5 Ur Specific [place] <= 1.005 L Urine Protein Negative Urine Glucose (UA) 3+ H Urine Ketones Negative Urine Blood Negative Urine Nitrite Negative Urine Bilirubin Negative Urine Urobilinogen 0.2 Ur Leukocyte Esterase Negative Urine Osmolality U Random Total Protein Ur Random Sodium Acetone, Qual 08/01/19 08/01/19 08/01/19 20:30 20:30 20:30 WBC RBC Hgb Hct MCV MCH MCHC RDW Plt Count MPV Absolute Neuts (auto) Neutrophils % Lymphocytes % Monocytes % Eosinophils % Basophils % Nucleated RBC % Anticoagulation Therapy Puncture Site ABG pH ABG pCO2 at Pt Temp ABG pO2 at Pt Temp ABG HCO3 ABG O2 Sat (Measured) ABG O2 Content ABG Base Excess Sergio Test VBG pH POC VBG pCO2 POC VBG pO2 VBG HCO3 VBG O2 Sat (Suhail) VBG Base Excess O2 Delivery Device Oxygen Flow Rate Vent Mode Vent Rate Mechanical Rate Pressure Support Vent Sodium Potassium Chloride Carbon Dioxide Anion Gap BUN Creatinine Est GFR (CKD-EPI)AfAm Est GFR (CKD-EPI)NonAf POC Glucometer Random Glucose Hemoglobin A1c % Serum Osmolality Calcium Total Bilirubin AST ALT Alkaline Phosphatase Troponin I Total Protein Albumin Triglycerides Cholesterol Total LDL Cholesterol HDL Cholesterol TSH Urine Color Urine Appearance Urine pH Ur Specific [place] Urine Protein Urine Glucose (UA) Urine Ketones Urine Blood Urine Nitrite Urine Bilirubin Urine Urobilinogen Ur Leukocyte Esterase Urine Osmolality 496 U Random Total Protein 14.6 H Ur Random Sodium 21 L Acetone, Qual 08/01/19 08/02/19 08/02/19 21:50 00:00 00:50 WBC RBC Hgb Hct MCV MCH MCHC RDW Plt Count MPV Absolute Neuts (auto) Neutrophils % Lymphocytes % Monocytes % Eosinophils % Basophils % Nucleated RBC % Anticoagulation Therapy No Result Required. Puncture Site Left brachial ABG pH 7.35 ABG pCO2 at Pt Temp 42.1 ABG pO2 at Pt Temp 68.2 L ABG HCO3 22.8 ABG O2 Sat (Measured) 93.2 L ABG O2 Content 17.0 ABG Base Excess -2.1 L Sergio Test Positive VBG pH POC VBG pCO2 POC VBG pO2 VBG HCO3 VBG O2 Sat (Suhail) VBG Base Excess O2 Delivery Device Room air Oxygen Flow Rate Room air Vent Mode No Result Required. Vent Rate No Result Required. Mechanical Rate No Result Required. Pressure Support Vent No Result Required. Sodium 131 L Potassium 4.7 Chloride 96 L Carbon Dioxide 26 Anion Gap 8 BUN 79.7 H Creatinine 2.7 H Est GFR (CKD-EPI)AfAm 27.62 Est GFR (CKD-EPI)NonAf 23.83 POC Glucometer Random Glucose 344 H Hemoglobin A1c % 15.9 H Serum Osmolality Calcium 8.6 Total Bilirubin AST ALT Alkaline Phosphatase Troponin I Total Protein Albumin Triglycerides Cholesterol Total LDL Cholesterol HDL Cholesterol TSH Urine Color Urine Appearance Urine pH Ur Specific [place] Urine Protein Urine Glucose (UA) Urine Ketones Urine Blood Urine Nitrite Urine Bilirubin Urine Urobilinogen Ur Leukocyte Esterase Urine Osmolality U Random Total Protein Ur Random Sodium Acetone, Qual 08/02/19 08/02/19 08/02/19 00:50 02:29 05:41 WBC RBC Hgb Hct MCV MCH MCHC RDW Plt Count MPV Absolute Neuts (auto) Neutrophils % Lymphocytes % Monocytes % Eosinophils % Basophils % Nucleated RBC % Anticoagulation Therapy Puncture Site ABG pH ABG pCO2 at Pt Temp ABG pO2 at Pt Temp ABG HCO3 ABG O2 Sat (Measured) ABG O2 Content ABG Base Excess Sergio Test VBG pH POC VBG pCO2 POC VBG pO2 VBG HCO3 VBG O2 Sat (Suhail) VBG Base Excess O2 Delivery Device Oxygen Flow Rate Vent Mode Vent Rate Mechanical Rate Pressure Support Vent Sodium Potassium Chloride Carbon Dioxide Anion Gap BUN Creatinine Est GFR (CKD-EPI)AfAm Est GFR (CKD-EPI)NonAf POC Glucometer 394 361 Random Glucose Hemoglobin A1c % Serum Osmolality Calcium Total Bilirubin AST ALT Alkaline Phosphatase Troponin I Total Protein Albumin Triglycerides 332 H Cholesterol 112 Total LDL Cholesterol 52 HDL Cholesterol 23 L TSH 3.11 Urine Color Urine Appearance Urine pH Ur Specific [place] Urine Protein Urine Glucose (UA) Urine Ketones Urine Blood Urine Nitrite Urine Bilirubin Urine Urobilinogen Ur Leukocyte Esterase Urine Osmolality U Random Total Protein Ur Random Sodium Acetone, Qual 08/02/19 08/02/19 06:30 06:30 WBC 10.2 H RBC 4.93 Hgb 14.1 Hct 42.1 MCV 85.6 MCH 28.7 MCHC 33.5 RDW 15.7 Plt Count 184 MPV 10.2 Absolute Neuts (auto) Neutrophils % Lymphocytes % Monocytes % Eosinophils % Basophils % Nucleated RBC % Anticoagulation Therapy Puncture Site ABG pH ABG pCO2 at Pt Temp ABG pO2 at Pt Temp ABG HCO3 ABG O2 Sat (Measured) ABG O2 Content ABG Base Excess Sergio Test VBG pH POC VBG pCO2 POC VBG pO2 VBG HCO3 VBG O2 Sat (Suhail) VBG Base Excess O2 Delivery Device Oxygen Flow Rate Vent Mode Vent Rate Mechanical Rate Pressure Support Vent Sodium 134 L Potassium 4.7 Chloride 98 Carbon Dioxide 28 Anion Gap 8 BUN 70.2 H Creatinine 2.4 H Est GFR (CKD-EPI)AfAm 31.85 Est GFR (CKD-EPI)NonAf 27.48 POC Glucometer Random Glucose 354 H Hemoglobin A1c % Serum Osmolality Calcium 8.9 Total Bilirubin AST ALT Alkaline Phosphatase Troponin I Total Protein Albumin Triglycerides Cholesterol Total LDL Cholesterol HDL Cholesterol TSH Urine Color Urine Appearance Urine pH Ur Specific [place] Urine Protein Urine Glucose (UA) Urine Ketones Urine Blood Urine Nitrite Urine Bilirubin Urine Urobilinogen Ur Leukocyte Esterase Urine Osmolality U Random Total Protein Ur Random Sodium Acetone, Qual S1 S2 RRR Lungs decreased Morbid obesity Abd-soft, obesem NT No edema PLAN On Levemir sliding scale will need sleep study as outpt endocrinology eval Problem List - Problems (1) Diabetes Code(s): E11.9 - TYPE 2 DIABETES MELLITUS WITHOUT COMPLICATIONS (2) Hyperglycemia Code(s): R73.9 - HYPERGLYCEMIA, UNSPECIFIED (3) Renal insufficiency Code(s): N28.9 - DISORDER OF KIDNEY AND URETER, UNSPECIFIED
[2019-08-02] MEDS: SODIUM CHLORIDE 1,000 ML IV SCH (10:38)
--- NOTE | 2019-08-02 11:37 | EKG ---
Test Reason : Blood Pressure : / mmHG Vent. Rate : 074 BPM Atrial Rate : 074 BPM P-R Int : 142 ms QRS Dur : 106 ms QT Int : 364 ms P-R-T Axes : 060 083 062 degrees QTc Int : 404 ms NORMAL SINUS RHYTHM EARLY REPOLARIZATION Confirmed by ELIUD ANDERSON MD ([id number]) on 08/02/2019 11:37:18 AM Referred By: Confirmed By:ELIUD ANDERSON MD
--- NOTE | 2019-08-02 11:39 | EKG ---
Test Reason : Blood Pressure : / mmHG Vent. Rate : 075 BPM Atrial Rate : 075 BPM P-R Int : 128 ms QRS Dur : 110 ms QT Int : 374 ms P-R-T Axes : 038 080 054 degrees QTc Int : 417 ms NORMAL SINUS RHYTHM POSSIBLE ANTERIOR INFARCT , AGE UNDETERMINED ABNORMAL ECG NO PREVIOUS ECGS AVAILABLE POOR DATA QUALITY, INTERPRETATION MAY BE ADVERSELY AFFECTED Confirmed by ELIUD ANDERSON MD ([id number]) on 08/02/2019 11:39:14 AM Referred By: Confirmed By:ELIUD ANDERSON MD
--- NOTE | 2019-08-02 12:11 | CON.PULM ---
Consult Consult Specialty:: PULMONARY Referred by:: KAYLEIGH Reason for Consultation:: R/O OSAS - History of Present Illness Chief Complaint: NONCOMPLIANT W DIABETIC MEDICATION History of Present Illness: 63 y/o M hx of CAD s/p stent placement, IDDM, HTN , presents to the ED with blood sugar of 800.He admits to not always taking his insulin as he should, especially at night time. He has had increased thirst and urination over the last three weeks. He also endorses some dizziness when he stands up from a sitting position. He endorses tingling in his feet bilaterally. He denies chest pain, shortness of breath, abdominal pain, nausea, vomiting, diarrhea, hematuria. I have been called to r/o osas. 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 No: AFIB Pulmonary: No: COPD Gastrointestinal: No: Ascites Hepatobiliary: No: Cirrhosis Renal/: Yes: Renal Inusuff, Cancer Heme/Onc: No: Anemia Endocrine: Yes: Diabetes Mellitus - Smoking History Smoking history: Never smoked - Social History History of Recent Travel: No Home Medications - Allergies Allergies/Adverse Reactions: Allergies Allergy/AdvReac Type Severity Reaction Status Date / Time No Known Allergies Allergy Verified 08/01/19 16:55 Review of Systems - Review of Systems Constitutional: reports: Lethargy. denies: Fever Eyes: denies: Blurred Vision HENT: denies: Difficult Swallowing Neck: denies: Decreased ROM Cardiovascular: denies: Chest Pain Respiratory: reports: Exercise Intolerance, SOB on Exertion. denies: Cough Gastrointestinal: denies: Abdominal Pain Genitourinary: denies: Burning Breasts: reports: No Symptoms Reported Musculoskeletal: reports: No Symptoms Physical Exam Vital Sings: Vital Signs Temperature 98 F 08/02/19 10:00 Pulse Rate 77 08/02/19 10:00 Respiratory Rate 20 08/02/19 10:00 Blood Pressure 129/75 08/02/19 10:00 O2 Sat by Pulse Oximetry (%) 94 L 08/02/19 09:00 Constitutional: Yes: Calm Eyes: Yes: EOM Intact HENT: Yes: Normocephalic Neck: Yes: Trachea Midline Cardiovascular: Yes: Regular Rate and Rhythm Respiratory: Yes: CTA Bilaterally Gastrointestinal: Yes: Normal Bowel Sounds, Abdomen, Obese Edema: No Neurological: Yes: Alert Labs: CBC, BMP 08/02/19 06:30 08/02/19 06:30 ABG Results ABG pH 7.35 (7.35-7.45) 08/02/19 00:00 ABG pCO2 at Pt Temp 42.1 mmHg (35-45) 08/02/19 00:00 ABG pO2 at Pt Temp 68.2 mmHg (80-100) L 08/02/19 00:00 ABG HCO3 22.8 mmol/L (22-27) 08/02/19 00:00 ABG O2 Sat (Measured) 93.2 % (95-98) L 08/02/19 00:00 ABG O2 Content 17.0 % vol 08/02/19 00:00 ABG Base Excess -2.1 meq/l (-2-2) L 08/02/19 00:00 all reviewed Imaging - Results Chest X-ray: Report Reviewed, Image Reviewed Problem List - Problems (1) Diabetes Code(s): E11.9 - TYPE 2 DIABETES MELLITUS WITHOUT COMPLICATIONS (2) Renal insufficiency Code(s): N28.9 - DISORDER OF KIDNEY AND URETER, UNSPECIFIED Assessment/Plan WILL ORDER OSAS SCREENING FOR THIS EVENING DIABETIC CONTROL/EDUCATION FOLLOW RENAL FUNCTION WILL LIKELY NEED PSG AN OUTPATIENT Ana Paula MCDANIELS MD
--- NOTE | 2019-08-02 16:14 | CONSULT ---
Consult Consult Specialty:: endocrine Referred by:: dr.mathews dangelo Reason for Consultation:: diabetes mellitus uncontrolled - History of Present Illness Chief Complaint: high sugars History of Present Illness: 63 y male pmh dmT2 htn,morbid obesity,cad,hld,admitted with julián,high sugars, polyuria,polydipsia,leg cramps,joint pains,limited mobility,high sugars despite taking inisulin ,denies cp cough ,fever or chills. 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 No: AFIB Pulmonary: No: COPD Gastrointestinal: No: Ascites Hepatobiliary: No: Cirrhosis Renal/: Yes: Renal Inusuff, Cancer Endocrine: Yes: Diabetes Mellitus - Smoking History Smoking history: Never smoked - Social History History of Recent Travel: No Home Medications - Allergies Allergies/Adverse Reactions: Allergies Allergy/AdvReac Type Severity Reaction Status Date / Time No Known Allergies Allergy Verified 08/01/19 16:55 Review of Systems - Review of Systems Constitutional: reports: Weakness Eyes: reports: Blurred Vision HENT: reports: No Symptoms Neck: reports: No Symptoms Cardiovascular: reports: Shortness of Breath Respiratory: reports: Exercise Intolerance, SOB on Exertion Genitourinary: reports: No Symptoms Breasts: reports: No Symptoms Reported Musculoskeletal: reports: Muscle Pain, Muscle Cramps, Muscle Weakness Integumentary: reports: No Symptoms Neurological: reports: Numbness, Weakness Endocrine: reports: Unexplained Weight Gain Physical Exam Vital Signs: Vital Signs Temperature 98.6 F 08/02/19 14:00 Pulse Rate 81 08/02/19 14:00 Respiratory Rate 20 08/02/19 14:00 Blood Pressure 131/71 08/02/19 14:00 O2 Sat by Pulse Oximetry (%) 94 L 08/02/19 09:00 Constitutional: Yes: Anxious Eyes: Yes: EOM Intact HENT: Yes: Atraumatic Neck: Yes: WNL Cardiovascular: Yes: Tachycardia Respiratory: Yes: CTA Bilaterally Gastrointestinal: Yes: Normal Bowel Sounds ...Rectal Exam: Yes: WNL Renal/: Yes: WNL Breast(s): Yes: WNL Musculoskeletal: Yes: WNL Extremities: Yes: WNL Edema: No Neurological: Yes: Tingling, Weakness, Other Labs: CBC, BMP 08/02/19 06:30 08/02/19 06:30 Assessment/Plan Current Active Problems Creatinine elevation (Acute) Diabetes (Acute) Hyperglycemia (Acute) Renal insufficiency (Acute) Abnormal Lab Results 08/01/19 08/01/19 08/01/19 18:34 18:34 18:34 WBC 11.9 H Absolute Neuts (auto) 9.2 H ABG pO2 at Pt Temp ABG O2 Sat (Measured) ABG Base Excess VBG pH 7.29 L POC VBG pCO2 57.8 H POC VBG pO2 < 49 H VBG O2 Sat (Suhail) 53.5 L Sodium 126 L Potassium 5.8 H Chloride 89 L BUN 86.2 H Creatinine 3.0 H Random Glucose 689 H* Hemoglobin A1c % Serum Osmolality Albumin 3.2 L Triglycerides HDL Cholesterol Ur Specific [place] Urine Glucose (UA) U Random Total Protein Ur Random Sodium 08/01/19 08/01/19 08/01/19 18:34 18:42 20:30 WBC Absolute Neuts (auto) ABG pO2 at Pt Temp ABG O2 Sat (Measured) ABG Base Excess VBG pH POC VBG pCO2 POC VBG pO2 VBG O2 Sat (Suhail) Sodium Potassium Chloride BUN Creatinine Random Glucose Hemoglobin A1c % Serum Osmolality 329 H Albumin Triglycerides HDL Cholesterol Ur Specific [place] <= 1.005 L Urine Glucose (UA) 3+ H U Random Total Protein Ur Random Sodium 21 L 08/01/19 08/01/19 08/02/19 20:30 21:50 00:00 WBC Absolute Neuts (auto) ABG pO2 at Pt Temp 68.2 L ABG O2 Sat (Measured) 93.2 L ABG Base Excess -2.1 L VBG pH POC VBG pCO2 POC VBG pO2 VBG O2 Sat (Suhail) Sodium 131 L Potassium Chloride 96 L BUN 79.7 H Creatinine 2.7 H Random Glucose 344 H Hemoglobin A1c % Serum Osmolality Albumin Triglycerides HDL Cholesterol Ur Specific [place] Urine Glucose (UA) U Random Total Protein 14.6 H Ur Random Sodium 08/02/19 08/02/19 08/02/19 00:50 00:50 06:30 WBC 10.2 H Absolute Neuts (auto) ABG pO2 at Pt Temp ABG O2 Sat (Measured) ABG Base Excess VBG pH POC VBG pCO2 POC VBG pO2 VBG O2 Sat (Suhail) Sodium Potassium Chloride BUN Creatinine Random Glucose Hemoglobin A1c % 15.9 H Serum Osmolality Albumin Triglycerides 332 H HDL Cholesterol 23 L Ur Specific [place] Urine Glucose (UA) U Random Total Protein Ur Random Sodium 08/02/19 06:30 WBC Absolute Neuts (auto) ABG pO2 at Pt Temp ABG O2 Sat (Measured) ABG Base Excess VBG pH POC VBG pCO2 POC VBG pO2 VBG O2 Sat (Suhail) Sodium 134 L Potassium Chloride BUN 70.2 H Creatinine 2.4 H Random Glucose 354 H Hemoglobin A1c % Serum Osmolality Albumin Triglycerides HDL Cholesterol Ur Specific [place] Urine Glucose (UA) U Random Total Protein Ur Random Sodium Laboratory Results - last 24 hr 08/01/19 08/01/19 08/01/19 16:52 18:34 18:34 WBC 11.9 H RBC 5.01 Hgb 14.1 Hct 44.2 MCV 88.2 MCH 28.2 MCHC 32.0 RDW 15.8 Plt Count 188 MPV 10.8 Absolute Neuts (auto) 9.2 H Neutrophils % 77.3 Lymphocytes % 12.2 Monocytes % 8.0 Eosinophils % 1.6 Basophils % 0.9 Nucleated RBC % 0 Anticoagulation Therapy Puncture Site ABG pH ABG pCO2 at Pt Temp ABG pO2 at Pt Temp ABG HCO3 ABG O2 Sat (Measured) ABG O2 Content ABG Base Excess Sergio Test VBG pH POC VBG pCO2 POC VBG pO2 VBG HCO3 VBG O2 Sat (Suhail) VBG Base Excess O2 Delivery Device Oxygen Flow Rate Vent Mode Vent Rate Mechanical Rate Pressure Support Vent Sodium 126 L Potassium 5.8 H Chloride 89 L Carbon Dioxide 25 Anion Gap 12 BUN 86.2 H Creatinine 3.0 H Est GFR (CKD-EPI)AfAm 24.32 Est GFR (CKD-EPI)NonAf 20.98 POC Glucometer > 600 Random Glucose 689 H* Hemoglobin A1c % Serum Osmolality Calcium 9.1 Total Bilirubin 0.3 AST 16 ALT 35 Alkaline Phosphatase 89 Troponin I Total Protein 7.3 Albumin 3.2 L Triglycerides Cholesterol Total LDL Cholesterol HDL Cholesterol TSH Urine Color Urine Appearance Urine pH Ur Specific [place] Urine Protein Urine Glucose (UA) Urine Ketones Urine Blood Urine Nitrite Urine Bilirubin Urine Urobilinogen Ur Leukocyte Esterase Urine Osmolality Ur Random Creatinine U Random Total Protein Ur Random Sodium Acetone, Qual 08/01/19 08/01/19 08/01/19 18:34 18:34 18:34 WBC RBC Hgb Hct MCV MCH MCHC RDW Plt Count MPV Absolute Neuts (auto) Neutrophils % Lymphocytes % Monocytes % Eosinophils % Basophils % Nucleated RBC % Anticoagulation Therapy Puncture Site ABG pH ABG pCO2 at Pt Temp ABG pO2 at Pt Temp ABG HCO3 ABG O2 Sat (Measured) ABG O2 Content ABG Base Excess Sergio Test VBG pH 7.29 L POC VBG pCO2 57.8 H POC VBG pO2 < 49 H VBG HCO3 26.6 VBG O2 Sat (Suhail) 53.5 L VBG Base Excess -0.9 O2 Delivery Device Oxygen Flow Rate Vent Mode Vent Rate Mechanical Rate Pressure Support Vent Sodium Potassium Chloride Carbon Dioxide Anion Gap BUN Creatinine Est GFR (CKD-EPI)AfAm Est GFR (CKD-EPI)NonAf POC Glucometer Random Glucose Hemoglobin A1c % Serum Osmolality Calcium Total Bilirubin AST ALT Alkaline Phosphatase Troponin I < 0.02 Total Protein Albumin Triglycerides Cholesterol Total LDL Cholesterol HDL Cholesterol TSH Urine Color Urine Appearance Urine pH Ur Specific [place] Urine Protein Urine Glucose (UA) Urine Ketones Urine Blood Urine Nitrite Urine Bilirubin Urine Urobilinogen Ur Leukocyte Esterase Urine Osmolality Ur Random Creatinine U Random Total Protein Ur Random Sodium Acetone, Qual Negative 08/01/19 08/01/19 08/01/19 18:34 18:42 20:21 WBC RBC Hgb Hct MCV MCH MCHC RDW Plt Count MPV Absolute Neuts (auto) Neutrophils % Lymphocytes % Monocytes % Eosinophils % Basophils % Nucleated RBC % Anticoagulation Therapy Puncture Site ABG pH ABG pCO2 at Pt Temp ABG pO2 at Pt Temp ABG HCO3 ABG O2 Sat (Measured) ABG O2 Content ABG Base Excess Sergio Test VBG pH POC VBG pCO2 POC VBG pO2 VBG HCO3 VBG O2 Sat (Suhail) VBG Base Excess O2 Delivery Device Oxygen Flow Rate Vent Mode Vent Rate Mechanical Rate Pressure Support Vent Sodium Potassium Chloride Carbon Dioxide Anion Gap BUN Creatinine Est GFR (CKD-EPI)AfAm Est GFR (CKD-EPI)NonAf POC Glucometer Random Glucose Hemoglobin A1c % Serum Osmolality 329 H Calcium Total Bilirubin AST ALT Alkaline Phosphatase Troponin I Total Protein Albumin Triglycerides Cholesterol Total LDL Cholesterol HDL Cholesterol TSH Urine Color Yellow Urine Appearance Clear Urine pH 5.5 Ur Specific [place] <= 1.005 L Urine Protein Negative Urine Glucose (UA) 3+ H Urine Ketones Negative Urine Blood Negative Urine Nitrite Negative Urine Bilirubin Negative Urine Urobilinogen 0.2 Ur Leukocyte Esterase Negative Urine Osmolality Ur Random Creatinine 54.0 U Random Total Protein Ur Random Sodium Acetone, Qual 08/01/19 08/01/19 08/01/19 20:28 20:30 20:30 WBC RBC Hgb Hct MCV MCH MCHC RDW Plt Count MPV Absolute Neuts (auto) Neutrophils % Lymphocytes % Monocytes % Eosinophils % Basophils % Nucleated RBC % Anticoagulation Therapy Puncture Site ABG pH ABG pCO2 at Pt Temp ABG pO2 at Pt Temp ABG HCO3 ABG O2 Sat (Measured) ABG O2 Content ABG Base Excess Sergio Test VBG pH POC VBG pCO2 POC VBG pO2 VBG HCO3 VBG O2 Sat (Suhail) VBG Base Excess O2 Delivery Device Oxygen Flow Rate Vent Mode Vent Rate Mechanical Rate Pressure Support Vent Sodium Potassium Chloride Carbon Dioxide Anion Gap BUN Creatinine Est GFR (CKD-EPI)AfAm Est GFR (CKD-EPI)NonAf POC Glucometer 570 Random Glucose Hemoglobin A1c % Serum Osmolality Calcium Total Bilirubin AST ALT Alkaline Phosphatase Troponin I Total Protein Albumin Triglycerides Cholesterol Total LDL Cholesterol HDL Cholesterol TSH Urine Color Urine Appearance Urine pH Ur Specific [place] Urine Protein Urine Glucose (UA) Urine Ketones Urine Blood Urine Nitrite Urine Bilirubin Urine Urobilinogen Ur Leukocyte Esterase Urine Osmolality 496 Ur Random Creatinine U Random Total Protein Ur Random Sodium 21 L Acetone, Qual 08/01/19 08/01/19 08/02/19 20:30 21:50 00:00 WBC RBC Hgb Hct MCV MCH MCHC RDW Plt Count MPV Absolute Neuts (auto) Neutrophils % Lymphocytes % Monocytes % Eosinophils % Basophils % Nucleated RBC % Anticoagulation Therapy No Result Required. Puncture Site Left brachial ABG pH 7.35 ABG pCO2 at Pt Temp 42.1 ABG pO2 at Pt Temp 68.2 L ABG HCO3 22.8 ABG O2 Sat (Measured) 93.2 L ABG O2 Content 17.0 ABG Base Excess -2.1 L Sergio Test Positive VBG pH POC VBG pCO2 POC VBG pO2 VBG HCO3 VBG O2 Sat (Suhail) VBG Base Excess O2 Delivery Device Room air Oxygen Flow Rate Room air Vent Mode No Result Required. Vent Rate No Result Required. Mechanical Rate No Result Required. Pressure Support Vent No Result Required. Sodium 131 L Potassium 4.7 Chloride 96 L Carbon Dioxide 26 Anion Gap 8 BUN 79.7 H Creatinine 2.7 H Est GFR (CKD-EPI)AfAm 27.62 Est GFR (CKD-EPI)NonAf 23.83 POC Glucometer Random Glucose 344 H Hemoglobin A1c % Serum Osmolality Calcium 8.6 Total Bilirubin AST ALT Alkaline Phosphatase Troponin I Total Protein Albumin Triglycerides Cholesterol Total LDL Cholesterol HDL Cholesterol TSH Urine Color Urine Appearance Urine pH Ur Specific [place] Urine Protein Urine Glucose (UA) Urine Ketones Urine Blood Urine Nitrite Urine Bilirubin Urine Urobilinogen Ur Leukocyte Esterase Urine Osmolality Ur Random Creatinine U Random Total Protein 14.6 H Ur Random Sodium Acetone, Qual 08/02/19 08/02/19 08/02/19 00:50 00:50 02:29 WBC RBC Hgb Hct MCV MCH MCHC RDW Plt Count MPV Absolute Neuts (auto) Neutrophils % Lymphocytes % Monocytes % Eosinophils % Basophils % Nucleated RBC % Anticoagulation Therapy Puncture Site ABG pH ABG pCO2 at Pt Temp ABG pO2 at Pt Temp ABG HCO3 ABG O2 Sat (Measured) ABG O2 Content ABG Base Excess Sergio Test VBG pH POC VBG pCO2 POC VBG pO2 VBG HCO3 VBG O2 Sat (Suhail) VBG Base Excess O2 Delivery Device Oxygen Flow Rate Vent Mode Vent Rate Mechanical Rate Pressure Support Vent Sodium Potassium Chloride Carbon Dioxide Anion Gap BUN Creatinine Est GFR (CKD-EPI)AfAm Est GFR (CKD-EPI)NonAf POC Glucometer 394 Random Glucose Hemoglobin A1c % 15.9 H Serum Osmolality Calcium Total Bilirubin AST ALT Alkaline Phosphatase Troponin I Total Protein Albumin Triglycerides 332 H Cholesterol 112 Total LDL Cholesterol 52 HDL Cholesterol 23 L TSH 3.11 Urine Color Urine Appearance Urine pH Ur Specific [place] Urine Protein Urine Glucose (UA) Urine Ketones Urine Blood Urine Nitrite Urine Bilirubin Urine Urobilinogen Ur Leukocyte Esterase Urine Osmolality Ur Random Creatinine U Random Total Protein Ur Random Sodium Acetone, Qual 08/02/19 08/02/19 08/02/19 05:41 06:30 06:30 WBC 10.2 H RBC 4.93 Hgb 14.1 Hct 42.1 MCV 85.6 MCH 28.7 MCHC 33.5 RDW 15.7 Plt Count 184 MPV 10.2 Absolute Neuts (auto) Neutrophils % Lymphocytes % Monocytes % Eosinophils % Basophils % Nucleated RBC % Anticoagulation Therapy Puncture Site ABG pH ABG pCO2 at Pt Temp ABG pO2 at Pt Temp ABG HCO3 ABG O2 Sat (Measured) ABG O2 Content ABG Base Excess Sergio Test VBG pH POC VBG pCO2 POC VBG pO2 VBG HCO3 VBG O2 Sat (Suhail) VBG Base Excess O2 Delivery Device Oxygen Flow Rate Vent Mode Vent Rate Mechanical Rate Pressure Support Vent Sodium 134 L Potassium 4.7 Chloride 98 Carbon Dioxide 28 Anion Gap 8 BUN 70.2 H Creatinine 2.4 H Est GFR (CKD-EPI)AfAm 31.85 Est GFR (CKD-EPI)NonAf 27.48 POC Glucometer 361 Random Glucose 354 H Hemoglobin A1c % Serum Osmolality Calcium 8.9 Total Bilirubin AST ALT Alkaline Phosphatase Troponin I Total Protein Albumin Triglycerides Cholesterol Total LDL Cholesterol HDL Cholesterol TSH Urine Color Urine Appearance Urine pH Ur Specific [place] Urine Protein Urine Glucose (UA) Urine Ketones Urine Blood Urine Nitrite Urine Bilirubin Urine Urobilinogen Ur Leukocyte Esterase Urine Osmolality Ur Random Creatinine U Random Total Protein Ur Random Sodium Acetone, Qual 08/02/19 08/02/19 10:42 13:25 WBC RBC Hgb Hct MCV MCH MCHC RDW Plt Count MPV Absolute Neuts (auto) Neutrophils % Lymphocytes % Monocytes % Eosinophils % Basophils % Nucleated RBC % Anticoagulation Therapy Puncture Site ABG pH ABG pCO2 at Pt Temp ABG pO2 at Pt Temp ABG HCO3 ABG O2 Sat (Measured) ABG O2 Content ABG Base Excess Sergio Test VBG pH POC VBG pCO2 POC VBG pO2 VBG HCO3 VBG O2 Sat (Suhail) VBG Base Excess O2 Delivery Device Oxygen Flow Rate Vent Mode Vent Rate Mechanical Rate Pressure Support Vent Sodium Potassium Chloride Carbon Dioxide Anion Gap BUN Creatinine Est GFR (CKD-EPI)AfAm Est GFR (CKD-EPI)NonAf POC Glucometer 515 587 Random Glucose Hemoglobin A1c % Serum Osmolality Calcium Total Bilirubin AST ALT Alkaline Phosphatase Troponin I Total Protein Albumin Triglycerides Cholesterol Total LDL Cholesterol HDL Cholesterol TSH Urine Color Urine Appearance Urine pH Ur Specific [place] Urine Protein Urine Glucose (UA) Urine Ketones Urine Blood Urine Nitrite Urine Bilirubin Urine Urobilinogen Ur Leukocyte Esterase Urine Osmolality Ur Random Creatinine U Random Total Protein Ur Random Sodium Acetone, Qual Laboratory Tests 08/01/19 08/01/19 08/02/19 16:52 20:28 02:29 POC Glucometer > 600 570 394 08/02/19 08/02/19 08/02/19 05:41 10:42 13:25 POC Glucometer [phone] plan: bgm achs novolog scale novolog coverage 70/30 bid doses diet consult close follow up out patient continue levemir bid dose
[2019-08-02] MEDS: INSULIN (NOVOLOG MIX 70/30) 100 UNITS/ML MDV SQ SCH (17:12)
[2019-08-02] MEDS: INSULIN (LEVEMIR) 100 UNITS/ML UNITS SQ SCH (21:40)
[2019-08-03] MEDS: INSULIN (LEVEMIR) 100 UNITS/ML UNITS SQ SCH ×2 (06:54→21:33)
[2019-08-03] MEDS: INSULIN (NOVOLOG MIX 70/30) 100 UNITS/ML MDV SQ SCH ×2 (06:56→17:20)
[2019-08-03] MEDS: INSULIN SLIDING SCALE (NOVOLOG) 1 VIAL SQ SCH ×4 (06:57→21:33)
[2019-08-03] MEDS: HEPARIN NA (PORCINE) 5,000 UNITS/ML 1ML VIAL SQ SCH ×3 (07:00→21:32)
[2019-08-03] MEDS ORDERED: INSULIN (NOVOLOG) ASPART 100 UNITS/ML 10ML VIAL ONE ×2 (07:12→12:08)
[2019-08-03] MEDS ORDERED: INSULIN (LEVEMIR) 100 UNITS/ML UNITS SQ ONE (07:12)
[2019-08-03] MEDS ORDERED: INSULIN (NOVOLOG MIX 70/30) 100 UNITS/ML MDV SQ ONE (07:12)
[2019-08-03 08:01] LABS: BLOOD UREA NITROGEN 53.7 mg/dL (7-18); CREATININE 2.1 mg/dL (0.55-1.3)
[2019-08-03] MEDS: SODIUM CHLORIDE 1,000 ML IV SCH (09:38)
--- NOTE | 2019-08-03 10:48 | PN ---
Progress Note (short form) - Note Progress Note: PULMONARY Sleep screen showing AHI 50. Denies shortness of breath, cough or wheezing. Vital Signs Period Temp Pulse Resp BP Sys/Rouse Pulse Ox Last 24 Hr 98 F-98.6 F 80-96 18-20 103-131/56-89 94 Gen: NAD at rest Heart: RRR Lung: decreased breath sounds at the bases Abd: soft, nontender Ext: no edema CBC, BMP 08/02/19 06:30 08/03/19 07:05 Active Medications Heparin Sodium (Porcine) (Heparin -) 5,000 unit SQ TID JASBIR Last Admin: 08/03/19 07:00 Dose: 5,000 unit Sodium Chloride (Normal Saline -) 1,000 mls @ 100 mls/hr IV ASDIR [facility] Last Admin: 08/03/19 09:38 Dose: 100 mls/hr Insulin Aspart (Novolog Mix 70/30 Vial) 30 units SQ BIDAC [facility] Last Admin: 08/03/19 06:56 Dose: 30 unit Insulin Aspart (Novolog Vial Sliding Scale -) 1 vial SQ ACHS [facility]; Protocol Last Admin: 08/03/19 06:57 Dose: 10 unit Insulin Detemir (Levemir Vial) 50 units SQ BID@0700,2200 [facility] Last Admin: 08/03/19 06:54 Dose: 50 unit A/P Hyperglycemic Hyperosmolar Nonketosis improving Acute Kidney Injury Morbid Obesity Suspect Obstructive Sleep Apnea CAD HTN DM - continue IVF - monitor urine output, creatinine - will need formal NPSG and CPAP titration study as outpt - DVT prophylaxis
--- NOTE | 2019-08-03 13:35 | PN ---
Progress Note (short form) - Note Progress Note: pt seen/ examined chart reviewed awake/ comfortable feels better Vital Signs Temp 98.4 F 08/03/19 10:00 Pulse 76 08/03/19 10:00 Resp 20 08/03/19 10:00 BP 133/76 08/03/19 10:00 Pulse Ox 94 L 08/03/19 09:00 Intake & Output 08/02/19 08/03/19 08/03/19 23:59 11:59 23:59 Intake Total 2350 1100 Balance 2350 1100 Intake: IV 1200 700 Normal Saline - 1,000 ml 1200 700 @ 100 mls/hr IV ASDIR JASBIR Rx#:[id number] Oral 1150 400 Other: Voiding Method Urinal Urinal # Unmeasured Voids Void 3 1 Bowel Movement No No Active Medications Heparin Sodium (Porcine) (Heparin -) 5,000 unit SQ TID [facility] Last Admin: 08/03/19 07:00 Dose: 5,000 unit Sodium Chloride (Normal Saline -) 1,000 mls @ 100 mls/hr IV ASDIR [facility] Last Admin: 08/03/19 09:38 Dose: 100 mls/hr Insulin Aspart (Novolog Mix 70/30 Vial) 30 units SQ BIDAC [facility] Last Admin: 08/03/19 06:56 Dose: 30 unit Insulin Aspart (Novolog Vial Sliding Scale -) 1 vial SQ ACHS [facility]; Protocol Last Admin: 08/03/19 12:16 Dose: 14 units Insulin Detemir (Levemir Vial) 50 units SQ BID@0700,2200 [facility] Last Admin: 08/03/19 06:54 Dose: 50 unit CBC, BMP 08/02/19 06:30 08/03/19 07:05 Physical Exam Awake/ comfortable Obese S1 S2 RRR Lungs decreased Abd-soft, No edema PLAN Better On Levemir/ NOvolog 70/30 sliding scale will need sleep study as outpt endocrinology eval noted/ appreciated cr better monitor Will follow D/w pt/ RN also Problem List - Problems (1) Obesity (BMI 30-39.9) Code(s): E66.9 - OBESITY, UNSPECIFIED (2) Hyperglycemia Code(s): R73.9 - HYPERGLYCEMIA, UNSPECIFIED (3) Renal insufficiency Code(s): N28.9 - DISORDER OF KIDNEY AND URETER, UNSPECIFIED
--- NOTE | 2019-08-03 15:41 | PN ---
Progress Note, Physician History of Present Illness: Pt seen and examined at bedside. He denies shortness of breath. He denies dysuria or hematuria. - Current Medication List Current Medications: Active Medications Heparin Sodium (Porcine) (Heparin -) 5,000 unit SQ TID JASBIR Last Admin: 08/03/19 14:59 Dose: 5,000 unit Sodium Chloride (Normal Saline -) 1,000 mls @ 100 mls/hr IV ASDIR [facility] Last Admin: 08/03/19 09:38 Dose: 100 mls/hr Insulin Aspart (Novolog Mix 70/30 Vial) 30 units SQ BIDAC JASBIR Last Admin: 08/03/19 06:56 Dose: 30 unit Insulin Aspart (Novolog Vial Sliding Scale -) 1 vial SQ ACHS [facility]; Protocol Last Admin: 08/03/19 12:16 Dose: 14 units Insulin Detemir (Levemir Vial) 50 units SQ BID@0700,2200 [facility] Last Admin: 08/03/19 06:54 Dose: 50 unit - Objective Vital Signs: Vital Signs Temperature 97.9 F 08/03/19 14:00 Pulse Rate 77 08/03/19 14:00 Respiratory Rate 20 08/03/19 14:00 Blood Pressure 113/67 08/03/19 14:00 O2 Sat by Pulse Oximetry (%) 94 L 08/03/19 09:00 Constitutional: Yes: Calm Eyes: Yes: Conjunctiva Clear HENT: Yes: Atraumatic Neck: Yes: Supple Cardiovascular: Yes: S1, S2 Gastrointestinal: Yes: Soft, Abdomen, Obese Genitourinary: Yes: WNL Musculoskeletal: Yes: WNL Edema: No Integumentary: Yes: Tattoos Neurological: Yes: Oriented Psychiatric: Yes: Oriented Labs: CBC, BMP 08/02/19 06:30 08/03/19 07:05 Assessment/Plan Current Medications Generic Name Dose Route Start Last Admin Trade Name Freq PRN Reason Stop Dose Admin Heparin Sodium (Porcine) 5,000 unit 08/02/19 06:00 08/03/19 14:59 Heparin - SQ 5,000 unit TID JASBIR Administration Sodium Chloride 1,000 mls @ 100 mls/hr 08/02/19 09:30 08/03/19 09:38 Normal Saline - IV 100 mls/hr ASDIR [facility] Administration Insulin Aspart 30 units 08/02/19 16:30 08/03/19 06:56 Novolog Mix 70/30 Vial SQ 30 unit BIDAC JASBIR Administration Insulin Aspart 1 vial 08/02/19 16:30 08/03/19 12:16 Novolog Vial Sliding Scale - SQ 14 units ACHS JSABIR Administration Protocol Insulin Detemir 50 units 08/02/19 16:26 08/03/19 06:54 Levemir Vial SQ 50 unit BID@0700,2200 JASBIR Administration Laboratory Tests 08/01/19 18:42 Urine Protein Negative Urine Blood Negative Impression 1. ADONIS 2. HTN 3. DM 4. obesity 5. CKD Plan - renal function is improving - repeat labs in am - ua neg protein - monitor glucose - avoid nsaids - recommend weight loss
--- NOTE | 2019-08-03 15:53 | CONSULT ---
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 No: AFIB Pulmonary: No: COPD Gastrointestinal: No: Ascites Hepatobiliary: No: Cirrhosis Renal/: Yes: Renal Inusuff, Cancer Endocrine: Yes: Diabetes Mellitus - Smoking History Smoking history: Never smoked - Social History History of Recent Travel: No Home Medications - Allergies Allergies/Adverse Reactions: Allergies Allergy/AdvReac Type Severity Reaction Status Date / Time No Known Allergies Allergy Verified 08/01/19 16:55 - Home Medications Home Medications: Ambulatory Orders Unobtainable 08/03/19 Physical Exam Vital Signs: Vital Signs Temperature 97.9 F 08/03/19 14:00 Pulse Rate 77 08/03/19 14:00 Respiratory Rate 20 08/03/19 14:00 Blood Pressure 113/67 08/03/19 14:00 O2 Sat by Pulse Oximetry (%) 94 L 08/03/19 09:00 Extremities: Yes: Other (vsgi, +palpable pulses, +tender dystrophic mycotic nails with subungual debris, +tinea pedis b/l soles of feet with scaling) Labs: CBC, BMP 08/02/19 06:30 08/03/19 07:05 Assessment/Plan onychomycosis poorly controlled diabetes [id number] tinea pedis b/l feet Diabetic foot education. Nails to be debrided. Topical antifungal cream to bottom of feet daily. Will follow.
--- NOTE | 2019-08-03 22:07 | PN ---
Progress Note, Physician Chief Complaint: has high sugars despite diet limited and unable to walk far - Current Medication List Current Medications: Active Medications Clotrimazole (Lotrimin 1% Cream -) 1 applic TP BID [facility] Heparin Sodium (Porcine) (Heparin -) 5,000 unit SQ TID [facility] Last Admin: 08/03/19 21:32 Dose: 5,000 unit Sodium Chloride (Normal Saline -) 1,000 mls @ 100 mls/hr IV ASDIR [facility] Last Admin: 08/03/19 09:38 Dose: 100 mls/hr Insulin Aspart (Novolog Mix 70/30 Vial) 45 units SQ BIDAC JASBIR Insulin Aspart (Novolog Vial Sliding Scale -) 1 vial SQ ACHS [facility]; Protocol Last Admin: 08/03/19 21:33 Dose: 15 units Insulin Detemir (Levemir Vial) 50 units SQ BID@0700,2200 [facility] Last Admin: 08/03/19 21:33 Dose: 50 unit - Objective Vital Signs: Vital Signs Temperature 98.2 F 08/03/19 17:06 Pulse Rate 77 08/03/19 17:06 Respiratory Rate 20 08/03/19 17:06 Blood Pressure 123/66 08/03/19 17:06 O2 Sat by Pulse Oximetry (%) 94 L 08/03/19 09:00 Constitutional: Yes: Calm Eyes: Yes: EOM Intact HENT: Yes: Normocephalic Neck: Yes: Trachea Midline Cardiovascular: Yes: Regular Rate and Rhythm Respiratory: Yes: CTA Bilaterally Gastrointestinal: Yes: Normal Bowel Sounds ...Rectal Exam: Yes: Deferred Genitourinary: Yes: WNL Breast(s): Yes: WNL Musculoskeletal: Yes: Joint Swelling, Muscle Pain, Muscle Weakness Extremities: Yes: WNL Edema: No Peripheral Pulses WNL: Yes Integumentary: Yes: Onychomycosis Neurological: Yes: Alert, Oriented Labs: CBC, BMP 08/02/19 06:30 08/03/19 07:05 Assessment/Plan Current Active Problems Creatinine elevation (Acute) Diabetes (Acute) Hyperglycemia (Acute) Obesity (BMI 30-39.9) (Acute) Renal insufficiency (Acute) Abnormal Lab Results 08/03/19 07:05 Anion Gap 6 L BUN 53.7 H Creatinine 2.1 H Random Glucose 270 H Laboratory Results - last 24 hr 08/02/19 08/03/19 08/03/19 21:31 06:07 07:05 Sodium 136 Potassium 5.0 Chloride 103 Carbon Dioxide 27 Anion Gap 6 L BUN 53.7 H Creatinine 2.1 H Est GFR (CKD-EPI)AfAm 37.43 Est GFR (CKD-EPI)NonAf 32.29 POC Glucometer 403 277 Random Glucose 270 H Calcium 9.0 08/03/19 08/03/19 08/03/19 12:14 17:19 21:22 Sodium Potassium Chloride Carbon Dioxide Anion Gap BUN Creatinine Est GFR (CKD-EPI)AfAm Est GFR (CKD-EPI)NonAf POC Glucometer 353 369 415 Random Glucose Calcium plan; novolog 70/30 bid titration doses levemir 50 iu bid insulin resistant
[2019-08-03] MEDS: CLOTRIMAZOLE 1% CREAM 15 GM TUBE TP SCH (22:34)
[2019-08-04] MEDS ORDERED: INSULIN (NOVOLOG) ASPART 100 UNITS/ML 10ML VIAL ONE ×2 (05:20→12:10)
[2019-08-04] MEDS: HEPARIN NA (PORCINE) 5,000 UNITS/ML 1ML VIAL SQ SCH (05:52)
[2019-08-04] MEDS: INSULIN (LEVEMIR) 100 UNITS/ML UNITS SQ SCH (06:13)
[2019-08-04] MEDS: INSULIN SLIDING SCALE (NOVOLOG) 1 VIAL SQ SCH ×2 (06:14→12:14)
[2019-08-04] MEDS ORDERED: INSULIN (NOVOLOG MIX 70/30) 100 UNITS/ML MDV SQ SCH (07:00)
[2019-08-04] MEDS: CLOTRIMAZOLE 1% CREAM 15 GM TUBE TP SCH (09:47)
[2019-08-04] MEDS: SODIUM CHLORIDE 1,000 ML IV SCH (09:47)
--- NOTE | 2019-08-04 10:48 | PN ---
Progress Note (short form) - Note Progress Note: PULMONARY Denies shortness of breath, cough or wheezing. Vital Signs Period Temp Pulse Resp BP Sys/Rouse Pulse Ox Last 24 Hr 97.9 F-98.5 F 71-77 20-20 100-123/59-67 Gen: NAD at rest Heart: RRR Lung: decreased breath sounds at the bases Abd: soft, nontender Ext: no edema CBC, BMP 08/02/19 06:30 08/03/19 07:05 Active Medications Clotrimazole (Lotrimin 1% Cream -) 1 applic TP BID [facility] Last Admin: 08/04/19 09:47 Dose: 1 applic Heparin Sodium (Porcine) (Heparin -) 5,000 unit SQ TID [facility] Last Admin: 08/04/19 05:52 Dose: 5,000 unit Sodium Chloride (Normal Saline -) 1,000 mls @ 100 mls/hr IV ASDIR [facility] Last Admin: 08/04/19 09:47 Dose: Not Given Insulin Aspart (Novolog Mix 70/30 Vial) 45 units SQ BIDAC [facility] Last Admin: 08/04/19 06:14 Dose: 45 units Insulin Aspart (Novolog Vial Sliding Scale -) 1 vial SQ ACHS [facility]; Protocol Last Admin: 08/04/19 06:14 Dose: Not Given Insulin Detemir (Levemir Vial) 50 units SQ BID@0700,2200 [facility] Last Admin: 08/04/19 06:13 Dose: 50 unit A/P Hyperglycemic Hyperosmolar Nonketosis improving Acute Kidney Injury Morbid Obesity Suspect Obstructive Sleep Apnea CAD HTN DM - continue IVF - monitor urine output, creatinine - will need formal NPSG and CPAP titration study as outpt, referral filled out - DVT prophylaxis
--- NOTE | 2019-08-04 11:39 | DS ---
Physical Examination Vital Signs: Vital Signs Temperature 98.5 F 08/04/19 06:28 Pulse Rate 71 08/04/19 06:28 Respiratory Rate 20 08/04/19 06:28 Blood Pressure 100/59 L 08/04/19 06:28 O2 Sat by Pulse Oximetry (%) 94 L 08/03/19 09:00 Constitutional: Yes: No Distress, Calm Cardiovascular: Yes: Regular Rate and Rhythm Respiratory: Yes: Diminished Gastrointestinal: Yes: Normal Bowel Sounds, Soft, Abdomen, Obese. No: Tenderness Edema: No Labs: CBC, BMP 08/02/19 06:30 08/03/19 07:05 Discharge Summary Problems reviewed: Yes Reason For Visit: HIGH CREATININE, HYPERGLYCEMIA Current Active Problems Creatinine elevation (Acute) Diabetes (Acute) Hyperglycemia (Acute) Obesity (BMI 30-39.9) (Acute) Renal insufficiency (Acute) Hospital Course: HISTORY OF PRESENT ILLNESS: 63 year old male with a history of CAD s/p stent, morbid obesity, insulin- dependent diabetes, hypertension, legionella in 2016, prostate CA s/p radiation therapy many years ago was sent to the ED from his PCP office for hyperglycemia found to be 800 in the office. He states that he is non-compliant with his insulin regimen and does not take it every day. He reports previously being on basaglar 100U twice a day, and then states that he was reduced t o 100U once a day when he saw his new PCP recently. Reports that he has had recent polyuria and polydipsia over the past several weeks. States that he has peripheral neuropathy in his feet that has been progressing over the past several months. Denies abdominal pain, nausea, vomiting or diarrhea, chest pain or shortness of breath. Denies ever being told he had any problems with his kidneys. ER course was notable for: (1) Glu 680 --> 344 s/p 10U insulin (2) Cre 2.7, unknown baseline (3) hyponatremia 126 HOSPITAL COURSE Pt was started on IV fluids-- creatinine now down to 2.1 Has baseline CKD Seen by Pulmonary, Podiatry, Renal and Endocrinology Started on Insulin Sugars getting better Pt will need PFT as outpt-- r/o sleep apnea Advised to closely follow up with Endocrinology, Renal as outpt Condition: Stable - Instructions Referrals: Thomas Lara MD [Staff Physician] - (CHARITO eval) Deidre Reynolds MD [Staff Physician] - Augusto Wetzel MD [Staff Physician] - Richard Vincent MD [Staff Physician] - Maurice Guzmán DPM [Staff Physician] - (DM feet) Disposition: HOME - Home Medications Comprehensive Discharge Medication List: Ambulatory Orders Unobtainable 08/03/19
[2019-08-04 12:00] VITALS: BP 121/64; PULSE 76; TEMP 98
--- NOTE | 2019-08-04 12:45 | PN ---
Progress Note, Physician History of Present Illness: Pt seen and examined at bedside. He is awake and alert. He denies shortness of breath. He is eager to go home. He denies dysuria or hematuria. - Current Medication List Current Medications: Active Medications Clotrimazole (Lotrimin 1% Cream -) 1 applic TP BID [facility] Last Admin: 08/04/19 09:47 Dose: 1 applic Heparin Sodium (Porcine) (Heparin -) 5,000 unit SQ TID [facility] Last Admin: 08/04/19 05:52 Dose: 5,000 unit Sodium Chloride (Normal Saline -) 1,000 mls @ 100 mls/hr IV ASDIR [facility] Last Admin: 08/04/19 09:47 Dose: Not Given Insulin Aspart (Novolog Mix 70/30 Vial) 45 units SQ BIDAC [facility] Last Admin: 08/04/19 06:14 Dose: 45 units Insulin Aspart (Novolog Vial Sliding Scale -) 1 vial SQ ACHS [facility]; Protocol Last Admin: 08/04/19 12:14 Dose: 10 units Insulin Detemir (Levemir Vial) 50 units SQ BID@0700,2200 [facility] Last Admin: 08/04/19 06:13 Dose: 50 unit - Objective Vital Signs: Vital Signs Temperature 98.0 F 08/04/19 10:00 Pulse Rate 76 08/04/19 10:00 Respiratory Rate 20 08/04/19 10:00 Blood Pressure 121/64 08/04/19 10:00 O2 Sat by Pulse Oximetry (%) 99 08/04/19 09:00 Constitutional: Yes: Calm Eyes: Yes: Conjunctiva Clear HENT: Yes: Atraumatic Neck: Yes: Supple Cardiovascular: Yes: S1, S2 Respiratory: Yes: CTA Bilaterally Gastrointestinal: Yes: Soft, Abdomen, Obese Genitourinary: Yes: WNL Musculoskeletal: Yes: WNL Extremities: Yes: WNL Edema: No Integumentary: Yes: Tattoos Neurological: Yes: Oriented Psychiatric: Yes: Oriented Labs: CBC, BMP 08/02/19 06:30 08/03/19 07:05 Problem List - Problems (1) Diabetes Code(s): E11.9 - TYPE 2 DIABETES MELLITUS WITHOUT COMPLICATIONS (2) Obesity (BMI 30-39.9) Code(s): E66.9 - OBESITY, UNSPECIFIED (3) Renal insufficiency Code(s): N28.9 - DISORDER OF KIDNEY AND URETER, UNSPECIFIED Assessment/Plan Current Medications Generic Name Dose Route Start Last Admin Trade Name Edie PRN Reason Stop Dose Admin Clotrimazole 1 applic 08/03/19 22:00 08/04/19 09:47 Lotrimin 1% Cream - TP 1 applic BID JASBIR Administration Heparin Sodium (Porcine) 5,000 unit 08/02/19 06:00 08/04/19 05:52 Heparin - SQ 5,000 unit TID JASBIR Administration Sodium Chloride 1,000 mls @ 100 mls/hr 08/02/19 09:30 08/04/19 09:47 Normal Saline - IV Not Given ASDIR JASBIR Insulin Aspart 45 units 08/04/19 07:00 08/04/19 06:14 Novolog Mix 70/30 Vial SQ 45 units BIDAC JASBIR Administration Insulin Aspart 1 vial 08/03/19 22:00 08/04/19 12:14 Novolog Vial Sliding Scale - SQ 10 units ACHS JASBIR Administration Protocol Insulin Detemir 50 units 08/02/19 16:26 08/04/19 06:13 Levemir Vial SQ 50 unit BID@0700,2200 JASBIR Administration Impression 1. ADONIS 2. HTN 3. DM 4. obesity 5. CKD Plan - cont to monitor renal function - will need outpt follow up, pt agrees to come to the office for workup - ua neg protein - monitor glucose - avoid nsaids - recommend weight loss
[2019-08-04 13:34] LABS: BLOOD UREA NITROGEN 37.7 mg/dL (7-18); CALCIUM 8.9 mg/dL (8.5-10.1); CREATININE 1.8 mg/dL (0.55-1.3); POTASSIUM 4.6 mmol/L (3.5-5.1)
== END 2019-08-04 13:50 | disposition home or self-care (01) | DRG 638 ==
LOC: JER 16:47 → JERBED 20:32 → J8W 22:54
PROVIDERS: ADMIT Internal Medicine; ATTEND Internal Medicine
DX: E11.65 Type 2 diabetes mellitus with hyperglycemia (principal); Z68.42 Body mass index [BMI] 45.0-49.9, adult; E87.1 Hypo-osmolality and hyponatremia; N17.9 Acute kidney failure, unspecified; I25.10 Atherosclerotic heart disease of native coronary artery without angina pectoris; E66.9 Obesity, unspecified; E66.01 Morbid (severe) obesity due to excess calories; Z79.4 Long term (current) use of insulin; Z85.46 Personal history of malignant neoplasm of prostate; E11.22 Type 2 diabetes mellitus with diabetic chronic kidney disease; I12.9 Hypertensive chronic kidney disease with stage 1 through stage 4 chronic kidney disease, or unspecified chronic kidney disease; N18.9 Chronic kidney disease, unspecified; B35.1 Tinea unguium; B35.3 Tinea pedis
CPT/HCPCS: 36415; 36600; 71045-TC-FY; 76775-TC; 80048; 80053; 80061; 81003; 82009; 82436; 82565; 82803; 82962; 83036; 83721; 83930; 83935; 84133; 84156; 84300; 84443; 84484; 85025; 85027; 93005; 93010; 99284-25; J1644; J7030